=== PATIENT | male | born 1950 | race Two or more races ===

== ENCOUNTER 2019-06-21 11:30 | Emergency (ER) | payer MEDICARE ==
[~2019-06-21] VITALS: Ht 170.2 cm; Wt 85.7 kg
[2019-06-21 11:57] LABS: BASOPHILS % (AUTO) 0.9 % (0.0-2.0); EOSINOPHILS % (AUTO) 1.3 % (0.0-6.0); HEMATOCRIT 40 % (39-51); HEMOGLOBIN 13.8 g/dL (13.5-17.5); LYMPHOCYTES # (AUTO) 0.9 /CMM (0.8-4.8); LYMPHOCYTES % (AUTO) 21.8 % (20.0-44.0); MEAN CORPUSCULAR HGB CONC 35 g/dl (31.0-36.0); MEAN CORPUSCULAR VOLUME 99 fL (80-96); MONOCYTES # (AUTO) 0.4 /CMM (0.1-1.30); NEUTROPHILS # (AUTO) 2.6 /CMM (1.8-8.9); PLATELET COUNT (AUTO) 251 /CMM (150-450); RED BLOOD CELL COUNT(AUTO) 4.06 MIL/uL (4.5-6.0)
[2019-06-21] MEDS ORDERED: LEVETIRACETAM (500MG) 1,000 MG in IV NS 0.9% 100 ML IV SCH (12:00)
[2019-06-21 12:03] LABS: CALCIUM, SERUM 8.9 mg/dL (8.5-10.1); CREATININE 1.1 mg/dL (0.6-1.3)
--- NOTE | 2019-06-21 12:13 | NUR ---
patient JOSE DAVID COX 61 From Home Room mate called "he slumped over/shaky for about 20 min. BS-11. on room air, breathing evenly and unlabored. connected to the monitor and pulse ox. IV access initiated, blood drawned. Will continue to monitor accordingly.
[2019-06-21 13:51] VITALS: BP 159/88
--- NOTE | 2019-06-21 13:53 | NUR ---
Patient discharged to home in stable condition. Written and verbal after care instructions given. Patient verbalizes understanding of instruction.IV removed. Catheter intact and site benign. Pressure and 4x4 applied to site. No bleeding noted.
== END 2019-06-21 13:52 | disposition home or self-care (01) ==
LOC: ER 11:32
DX: G40.909 Epilepsy, unspecified, not intractable, without status epilepticus (principal); I10 Essential (primary) hypertension
CPT/HCPCS: 36415; 80048; 85025; 96365; 99283; J1953; J7030

== ENCOUNTER 2019-09-28 09:09 | Emergency (ER) | payer MEDICARE ==
[~2019-09-28] VITALS: Ht 170.2 cm; Wt 86.2 kg
[2019-09-28] MEDS ORDERED: IV NS 0.9% 1,000 ML BAG IV ONE ×2 (09:30→11:30)
--- NOTE | 2019-09-28 09:30 | NUR ---
PATIENT ARRIVED AT UNIT VIA RA. PATIENT A/O X 2. NO ACUTE DISTRESS. PER REPORT, PATIENT HAD GLD WHILE WALKING IN THE STREET. DENIES ANY TRAUMA. PATIENT CONNECTED TO MONITOR. WILL CONTINUE TO MONITOR ACCORDINGLY
[2019-09-28 09:58] LABS: BASOPHILS # (AUTO) 0.4 /CMM (0.0-0.2); BASOPHILS % (AUTO) 4.6 % (0.0-2.0); EOSINOPHILS % (AUTO) 0.6 % (0.0-6.0); HEMATOCRIT 48 % (39-51); HEMOGLOBIN 16.2 g/dL (13.5-17.5); LYMPHOCYTES % (AUTO) 12.8 % (20.0-44.0); MEAN CORPUSCULAR HGB CONC 34 g/dl (31.0-36.0); MEAN CORPUSCULAR VOLUME 101 fL (80-96); MONOCYTES # (AUTO) 0.4 /CMM (0.1-1.30); MONOCYTES % (AUTO) 5.6 % (2.0-12.0); NEUTROPHILS % (AUTO) 76.4 % (43.0-81.0); PLATELET COUNT (AUTO) 255 /CMM (150-450); RED BLOOD CELL COUNT(AUTO) 4.77 MIL/uL (4.5-6.0); WHITE BLOOD COUNT (AUTO) 7.8 K/uL (4.3-11.0)
--- NOTE | 2019-09-28 10:07 | NUR ---
URINE COLLECTED AND SENT TO LAB
[2019-09-28 10:31] LABS: APPEARANCE,URINE Clear (CLEAR); BILIRUBIN,URINE Negative (NEGATIVE); BLOOD, URINE Trace-lysed Ery/uL (NEGATIVE); COLOR,URINE Yellow (YELLOW); KETONES,URINE Negative (NEGATIVE); LEUKOCYTE ESTERASE ,URINE Negative (NEGATIVE); NITRITE, URINE Negative (NEGATIVE); PROTEIN,URINE 30 mg/dl (NEGATIVE); UGLUCOSE Negative (NEGATIVE); UROBILINOGEN,URINE 0.2 EU/dL (0.2)
[2019-09-28 10:31] LABS: CALCIUM, SERUM 8.9 mg/dL (8.5-10.1); CARBON DIOXIDE 19 mmol/L (21-32); CHLORIDE 105 mmol/L (98-107); CREATININE 0.7 mg/dL (0.6-1.3); GLUCOSE 78 mg/dL (74-106); POTASSIUM 3.5 mmol/L (3.5-5.1); SODIUM SERUM 138 mmol/L (136-145); UREA NITROGEN, BLOOD 8 mg/dL (7-18)
[2019-09-28 10:32] LABS: BACTERIA,URINE Rare /HPF (None Seen); RBC,URINE 0-2 /HPF (0-2); SQUAMOUS EPITHELIAL CELL,UR None Seen /HPF (None Seen); WBC,URINE 0-2 /HPF (0-3)
--- NOTE | 2019-09-28 10:59 | NUR ---
Note undone in EDM - 09/28/19 at 1100 by BLU PATIENT TRANSFERRED TO [facility] [place]IA ACLS PROTOCOL. NO ACUTE DISTRESS. NO FACIAL GRIMACE. BLACKMAN IN PLACE AND DRAINING. RECEIVING RN AT BEDSIDE.
[2019-09-28] MEDS ORDERED: LEVETIRACETAM (500MG) 1,000 MG in IV NS 0.9% 100 ML IV SCH (12:00)
[2019-09-28 13:21] LABS: BILIRUBIN,DIRECT 0.1 mg/dL (0.0-0.2); BILIRUBIN,TOTAL 0.2 mg/dL (0.2-1.0)
--- NOTE | 2019-09-28 15:58 | NUR ---
Social service consult requested by Dr. Patricio for possible homelessness. Pt. is a 69 year old -[place] Citizen male who was brought to [facility] via ambulance for ground level fall. SW met with the pt. bedside. Pt. is alert and oriented x 3. Pt. appears confused at times. Pt. is giving conflicting information as to where he resides. Pt. then states he rents a room at [address] [place] [address], [place] [id number] in [place]. Pt. is an alcoholic and drinks a litre of yellowtail wine whenever he is able to afford it. Pt. states he hasn't drank any alcohol since 5AM this morning. SW offered pt. referrals to alcohol treatment programs, however pt. declined. Pt. had his debit card and ID with him. Pt. was provided with a sandwich. Pt. was also provided with a TAP card for transportation to his location of choice. Pt. is ambulatory. Homeless Patient waiver form was signed by the pt. and placed in pt's chart. No other social service needs are requested at this time. XAVI Uriostegui is aware of pt's discharge plan.
[2019-09-28 16:20] VITALS: BP 144/89
--- NOTE | 2019-09-28 16:20 | NUR ---
Patient discharged to home in stable condition. Written and verbal after care instructions given. Tap card provided to patient. patient seen by social psychologist. Patient verbalizes understanding of instruction. Written prescription provided to patient.
== END 2019-09-28 16:22 | disposition home or self-care (01) ==
LOC: ER 09:11
DX: G40.909 Epilepsy, unspecified, not intractable, without status epilepticus (principal); I10 Essential (primary) hypertension; Z60.2 Problems related to living alone; W18.39XA Other fall on same level, initial encounter; Y93.01 Activity, walking, marching and hiking; Y92.89 Other specified places as the place of occurrence of the external cause; Y99.8 Other external cause status
CPT/HCPCS: 36415; 80048; 81001; 82247; 82248; 83605 ×2; 84484; 85025; 93005; 96365; 99284; J1953; J7030 ×3; 81000-TC

== ENCOUNTER 2019-11-07 09:15 | Inpatient (IN) | payer MEDICARE ==
[~2019-11-07] VITALS: Ht 170.2 cm; Wt 75.3 kg
[2019-11-07 07:00] VITALS: BP 140/66
--- NOTE | 2019-11-07 09:25 | NUR ---
[id number], from home, unwitnessed seizure, no injury or trauma, postictal bs 93. PT IS ALERT AND ORIENTED X2, WITH EPIDOES OF CONFUSION. BREATHING EVEN AND UNLABORED WITH NO DISTRESS NOTED. SKIN INTACT. SIDERAILS UP AND PADDED. AWAITING TO BE SEEN BY
--- NOTE | 2019-11-07 09:28 | NUR ---
SEEN AND EXAMINED BY .
--- NOTE | 2019-11-07 09:42 | NUR ---
IV LINE ESTABLISHED, BLOOD DRAWN AND SENT TO LAB.
[2019-11-07 09:44] LABS: BASOPHILS % (AUTO) 0.4 % (0.0-2.0); EOSINOPHILS % (AUTO) 0.3 % (0.0-6.0); HEMATOCRIT 47 % (39-51); HEMOGLOBIN 15.6 g/dL (13.5-17.5); LYMPHOCYTES # (AUTO) 0.7 /CMM (0.8-4.8); LYMPHOCYTES % (AUTO) 6.1 % (20.0-44.0); MEAN CORPUSCULAR HGB CONC 34 g/dl (31.0-36.0); MEAN CORPUSCULAR VOLUME 97 fL (80-96); MONOCYTES # (AUTO) 0.8 /CMM (0.1-1.30); MONOCYTES % (AUTO) 7.1 % (2.0-12.0); NEUTROPHILS # (AUTO) 10.2 /CMM (1.8-8.9); NEUTROPHILS % (AUTO) 86.1 % (43.0-81.0); PLATELET COUNT (AUTO) 358 /CMM (150-450); RED BLOOD CELL COUNT(AUTO) 4.79 MIL/uL (4.5-6.0); WHITE BLOOD COUNT (AUTO) 11.9 K/uL (4.3-11.0)
--- NOTE | 2019-11-07 09:45 | NUR ---
REWORK OPERATOR AT BEDSIDE
--- NOTE | 2019-11-07 09:48 | NUR ---
DIRECTOR OF BUSINESS CONTINUITY ERA IS AT BED SIDE.
[2019-11-07 09:51] LABS: CALCIUM, SERUM 9.3 mg/dL (8.5-10.1); CARBON DIOXIDE 28 mmol/L (21-32); CHLORIDE 101 mmol/L (98-107); GLUCOSE 113 mg/dL (74-106); POTASSIUM 3.7 mmol/L (3.5-5.1); SODIUM SERUM 137 mmol/L (136-145); UREA NITROGEN, BLOOD 10 mg/dL (7-18)
--- NOTE | 2019-11-07 09:53 | NUR ---
ADENIKE PERLA TOOK PT FOR CT SCAN
[2019-11-07 09:56] LABS: ALANINE AMINOTRANSFERASE 25 U/L (12-78); ALCOHOL, BLOOD < 3 mg/dL (0-0); ALKALINE PHOSPHATASE 82 U/L (46-116); ASPARTATE AMINOTRANSFERASE 34 U/L (15-37); BILIRUBIN,DIRECT 0.4 mg/dL (0.0-0.2); BILIRUBIN,TOTAL 1.6 mg/dL (0.2-1.0); TOTAL PROTEIN, SERUM 8.3 g/dL (6.4-8.2)
[2019-11-07] MEDS ORDERED: LORAZEPAM INJ 2 MG/ML VIAL ONE (10:09)
--- NOTE | 2019-11-07 10:10 | NUR ---
ENTERTAINMENT MUSICIAN COULD NOT COMPLETE CT SCAN, PT WAS BEING AGRESSIVE AND AGITATED. AWARE. NEW VERBAL ORDERS RECVD
[2019-11-07] MEDS ORDERED: LORAZEPAM INJ 2 MG/ML VIAL IV ONE (10:30)
--- NOTE | 2019-11-07 10:53 | NUR ---
SPOKED TO , SHE WANTS TO ORDER PT/OT FOR THIS PT, WILL RELY TO HOSPITALIST.
--- NOTE | 2019-11-07 10:53 | NUR ---
EMMANUEL CALLED ITS MAJOR.
--- NOTE | 2019-11-07 11:10 | NUR ---
Received a call from [facility] GINO Maciel. Patient needs to be transferred to SNF. Facesheet, ER Notes, Imaging, and Lab faxed to [facility] at [phone]. Carla CHRISTIAN AT [facility] will place the patient
--- NOTE | 2019-11-07 11:15 | NUR ---
Daniel MAJOR AT BEDSIDE FOR EVAL.
--- NOTE | 2019-11-07 11:17 | NUR ---
Social service consult requested by ER MD for suspected self-neglect requiring an adult protective services report. Pt is a 69 year old male who was BIB RA for seizure. SW attempted to conduct assessment with pt but pt unable to engage due to being medically sedated. Per ER MD, pt was found "living in squalor" by the paramedics that transported pt to ER. SIENA has submitted a report to Adult Protective Services of [facility] at 10:59 for possible self-neglect. APS Intake ID # [id number]. No other services needed at this time. SW available if needed.
--- NOTE | 2019-11-07 11:20 | NUR ---
SPOKED TO [facility] GENERAL INTERN, HOLD ADMISSION FOR NOW, WILL CALL BACK FOR SNF FACILITY INFO.
--- NOTE | 2019-11-07 11:29 | NUR ---
ROOM GIVEN [id number] RN JOSE
--- NOTE | 2019-11-07 11:42 | NUR ---
REPORT GIVEN TO LITO
--- NOTE | 2019-11-07 12:00 | NUR ---
MS LINEN SUPPLY LOAD BUILDER NOTES Received Patient agitated and combative. A/O x 1-2 with episodes of confusion. VS stable with no acute distress. Breathing even and unlabored on room air with no respiratory distress. No signs and symptoms of pain. Patient does not want to be touched at this time and hitting and kicking nurses when too close to the Patient. Otherwise skin intact. 18g PIV on RFA clean, intact, and flushing well with NS infusing at 75ml/hr. Safety precautions in place. Bed locked and set to lowest position with side rails x 3 up. All needs rendered at this time. Call light within reach. Sitter at bedside. Will continue to monitor.
--- NOTE | 2019-11-07 12:03 | NUR ---
pt transferred to [facility] safely
[2019-11-07] MEDS ORDERED: Z GUARD REMEDY 2 OZ OINT TP PRN (12:30)
[2019-11-07] MEDS ORDERED: MAG HYDROX/AL HYDROX/SIMETH 30 ML UDC PO PRN (12:30)
[2019-11-07] MEDS ORDERED: ACETAMINOPHEN 325 MG TABLET PO PRN (12:30)
[2019-11-07] MEDS ORDERED: MAGNESIUM HYDROXIDE 30 ML UDC PO PRN (12:30)
[2019-11-07] MEDS ORDERED: ONDANSETRON HCL/PF 4 MG/2 ML VIAL IVP PRN (12:30)
[2019-11-07 16:00] VITALS: BP 144/80
[2019-11-07] MEDS: LEVETIRACETAM (500MG) 1,000 MG in IV NS 0.9% 100 ML IV SCH (17:35)
[2019-11-07] MEDS: IV NS 0.9% 1,000 ML IV PRN (17:35)
--- NOTE | 2019-11-07 19:29 | NUR ---
MS RN CLOSING NOTES Patient asleep and resting in bed. A/O x 1-2 with episodes of confusion. VS stable with no acute distress. Breathing even and unlabored on room air with no respiratory distress. No signs and symptoms of pain. 18g PIV on RFA clean, intact, and flushing well with NS infusing at 75ml/hr. Safety precautions in place. Bed locked and set to lowest position with side rails x 3 up. All needs rendered at this time. Call light within reach. Sitter at bedside. Will endorse plan of care to oncoming shift.
--- NOTE | 2019-11-07 19:30 | NUR ---
MS RN OPENING NOTES RECEIVED PATIENT FROM MORNING SHIFT, ALERT AND ORIENTED 1-2. VERBALLY RESPONSIVE AND ABLE TO FOLLOW DIRECTIONS. BREATHING REGULAR AND UNLABORED ON ROOM AIR. RIGHT FOREARM IV LINE INTACT AND PATENT INFUSING WELL WITH NO BLEEDING OR S/S OF INFECTION/INFILTRATION NOTED. NO S/S OF PAIN/DISCOMFORT SEEN OF NOW. ON ONE TO ONE SITTER, NO EPISODE OF AGITATION OBSERVED OF THE TIME. BED LOW AND LOCKED ON SEMI FOWLERS POSITION. CALL LIGHT IN REACH. WILL CONTINUE TO MONITOR.
[2019-11-07 19:42] VITALS: BP 155/115
[2019-11-07 20:50] VITALS: BP 144/93
[2019-11-08] MEDS: LEVETIRACETAM (500MG) 1,000 MG in IV NS 0.9% 100 ML IV SCH ×2 (02:20→13:53)
--- NOTE | 2019-11-08 03:40 | NUR ---
MS RN NOTES PATIENT PULLED OUT IV LINE. NEW LINE G22 REINSERTED ON LEFT HAND WITH GOOD BLOOD BACKFLOW, FLUSHING WELL. HOOKED BACK TO IV FLUIDS, INFUSING WELL. WILL CONTINUE TO MONITOR.
[2019-11-08 06:13] LABS: BASOPHILS % (AUTO) 0.5 % (0.0-2.0); EOSINOPHILS % (AUTO) 0.5 % (0.0-6.0); HEMATOCRIT 42 % (39-51); HEMOGLOBIN 13.8 g/dL (13.5-17.5); LYMPHOCYTES # (AUTO) 1.6 /CMM (0.8-4.8); LYMPHOCYTES % (AUTO) 19.7 % (20.0-44.0); MEAN CORPUSCULAR HGB CONC 33 g/dl (31.0-36.0); MEAN CORPUSCULAR VOLUME 97 fL (80-96); MONOCYTES # (AUTO) 0.5 /CMM (0.1-1.30); MONOCYTES % (AUTO) 6.9 % (2.0-12.0); NEUTROPHILS # (AUTO) 5.7 /CMM (1.8-8.9); NEUTROPHILS % (AUTO) 72.4 % (43.0-81.0); PLATELET COUNT (AUTO) 313 /CMM (150-450); RED BLOOD CELL COUNT(AUTO) 4.29 MIL/uL (4.5-6.0); WHITE BLOOD COUNT (AUTO) 7.9 K/uL (4.3-11.0)
--- NOTE | 2019-11-08 06:16 | NUR ---
MS RN CLOSING NOTES PATIENT IN BED, ALERT AND ORIENTED X 1-2 WITH EPISODES OF CONFUSION. VERBALLY RESPONSIVE AND ABLE TO FOLLOW DIRECTIONS. NO S/S OF RESPIRATORY DISTRESS SEEN OF THE TIME. LEFT HAND G22 IV LINE INTACT AND PATENT INFUSING WELL WITH NO BLEEDING OR S/S OF INFECTION/INFILTRATION NOTED. NO REPORTS OF PAIN/DISCOMFORT THE WHOLE SHIFT. MAINTAINED ON ONE TO ONE SITTER WITH NO EPISODE OF AGITATION OBSERVED OF THE TIME. MAINTAINED ON NOTHING BY MOUTH. BED LOW AND LOCKED ON SEMI FOWLERS POSITION. CALL LIGHT IN REACH. WILL ENDORSE TO MORNING SHIFT FOR LISA
[2019-11-08] MEDS: IV NS 0.9% 1,000 ML IV PRN (06:24)
[2019-11-08 06:46] LABS: BILIRUBIN,DIRECT 0.4 mg/dL (0.0-0.2); BILIRUBIN,TOTAL 1.9 mg/dL (0.2-1.0); CALCIUM, SERUM 8.6 mg/dL (8.5-10.1); CREATININE 0.9 mg/dL (0.6-1.3); MAGNESIUM 1.8 mg/dL (1.8-2.4); POTASSIUM 3.4 mmol/L (3.5-5.1); TOTAL PROTEIN, SERUM 6.7 g/dL (6.4-8.2)
[2019-11-08 06:53] LABS: THYROID STIMULATING HORMONE 1.439 uIU/mL (0.358-3.74)
[2019-11-08 08:00] VITALS: BP 135/94
[2019-11-08] MEDS: POTASSIUM CL. PREMIX PERIPHER. 50 ML IV SCH ×2 (10:37→11:29)
--- NOTE | 2019-11-08 12:30 | NUR ---
Joselito MADDOX CLAIMS COLLECTOR IN WITH PLANS FOR DISCHARGE TODAY.RESTARTED ON FOOD.WAS NPO.STARTED CL LIQ. DIET.SITTER AT BEDSIDE.
--- NOTE | 2019-11-08 13:00 | NUR ---
TOLERATED CL LIQ. DIET.
[2019-11-08] MEDS ORDERED: ALLA266C2 TP (13:31)
[2019-11-08] MEDS ORDERED: ACET325T53 PO (13:31)
[2019-11-08] MEDS ORDERED: LEVE1000 PO (13:31)
--- NOTE | 2019-11-08 14:00 | NUR ---
REPORT CALLED TO FACILITY.SPOKE WITH DANIEL.
--- NOTE | 2019-11-08 15:42 | NUR ---
awaiting ambulance arrival.
[2019-11-08 16:00] VITALS: BP 139/100
--- NOTE | 2019-11-08 17:30 | NUR ---
AMBULANCE HERE.TENTER FEEDER GIVEN REPORT.HEP LOCKS OUT.ALL PAPERS SIGNED.TAKEN VIA AMBULANCE TO FACILITY.
[2019-11-08 17:59] LABS: APPEARANCE,URINE CLEAR (CLEAR); BILIRUBIN,URINE NEGATIVE (NEGATIVE); BLOOD, URINE NEGATIVE Ery/uL (NEGATIVE); COLOR,URINE YELLOW (YELLOW); KETONES,URINE TRACE (NEGATIVE); LEUKOCYTE ESTERASE ,URINE NEGATIVE (NEGATIVE); NITRITE, URINE NEGATIVE (NEGATIVE); PROTEIN,URINE NEGATIVE (NEGATIVE); UGLUCOSE NEGATIVE (NEGATIVE); UROBILINOGEN,URINE 0.2 EU/dL (0.2)
== END 2019-11-08 17:50 | DRG 101 ==
LOC: ER 09:26 → MED 11:36
PROVIDERS: ADMIT Nurse Practitioner Acute Care; ATTEND Nurse Practitioner Acute Care
DX: G40.409 Other generalized epilepsy and epileptic syndromes, not intractable, without status epilepticus (principal); I10 Essential (primary) hypertension; Z86.73 Personal history of transient ischemic attack (TIA), and cerebral infarction without residual deficits; E80.6 Other disorders of bilirubin metabolism; Z91.14 Patient's other noncompliance with medication regimen
CPT/HCPCS: 36415; 70450-TC; 71045-TC; 80048-TC; 80061-TC; 80076-TC; 81000-TC; 83735-TC; 84100-TC; 84443-TC; 85025-TC; 87040-TC; 87081-TC; 87086-TC; G0378; G0480; J1953; J2060; J3480; J7030

== ENCOUNTER 2019-12-25 17:15 | Emergency (ER) | payer MEDICARE ==
[~2019-12-25] VITALS: Ht 182.9 cm; Wt 83.9 kg
[~2019-12-25 17:15] MED LIST: ACET325T53 PO; ALLA266C2 TP; LEVE1000 PO
--- NOTE | 2019-12-25 17:20 | NUR ---
BIB RA C/O WITNESSED SEIZURE FULL TONIC CLONIC X 4MIN, PT TO BED 6, -SOB, PT ON MONITOR, VSS, PENDING MD DAVIS
[2019-12-25] MEDS ORDERED: LEVETIRACETAM SOL (5 ML) 100 MG/ML UDC PO SCH (17:30)
[2019-12-25] MEDS ORDERED: IV NS 0.9% 1,000 ML BAG IV ONE (17:30)
[2019-12-25] MEDS ORDERED: LORAZEPAM INJ 2 MG/ML VIAL IV ONE (17:30)
[2019-12-25 17:41] LABS: BASOPHILS % (AUTO) 0.7 % (0.0-2.0); EOSINOPHILS % (AUTO) 1.6 % (0.0-6.0); HEMATOCRIT 42 % (39-51); HEMOGLOBIN 14.1 g/dL (13.5-17.5); LYMPHOCYTES # (AUTO) 1.6 /CMM (0.8-4.8); LYMPHOCYTES % (AUTO) 35.6 % (20.0-44.0); MEAN CORPUSCULAR HGB CONC 34 g/dl (31.0-36.0); MEAN CORPUSCULAR VOLUME 97 fL (80-96); MONOCYTES # (AUTO) 0.5 /CMM (0.1-1.30); MONOCYTES % (AUTO) 10.4 % (2.0-12.0); NEUTROPHILS # (AUTO) 2.4 /CMM (1.8-8.9); NEUTROPHILS % (AUTO) 51.7 % (43.0-81.0); PLATELET COUNT (AUTO) 259 /CMM (150-450); WHITE BLOOD COUNT (AUTO) 4.6 K/uL (4.3-11.0)
[2019-12-25] MEDS ORDERED: LEVETIRACETAM (250 MG) 250 MG TABLET PO ONE (17:41)
[2019-12-25] MEDS ORDERED: LORAZEPAM INJ 2 MG/ML VIAL ONE (17:42)
[2019-12-25 17:48] LABS: POTASSIUM 3.7 mmol/L (3.5-5.1)
[2019-12-25 17:54] LABS: ALBUMIN 3.7 g/dL (3.4-5.0); BILIRUBIN,DIRECT 0.2 mg/dL (0.0-0.2); BILIRUBIN,TOTAL 1.3 mg/dL (0.2-1.0); TOTAL PROTEIN, SERUM 7.7 g/dL (6.4-8.2)
--- NOTE | 2019-12-25 20:53 | NUR ---
PER MD, PT WILL BE TRANSFERRED, PENDING FOLLOW UP FROM CM
--- NOTE | 2019-12-25 23:07 | NUR ---
TRANSFER INFO: PT ACCEPTED AT [facility] ROOM 214-B, AMBULANCE ETA 0045, RN [phone]
[2019-12-26] MEDS ORDERED: hydrALAZINE HCL IV 20 MG VIAL ONE (00:57)
[2019-12-26 01:17] VITALS: BP 158/121
--- NOTE | 2019-12-26 01:17 | NUR ---
pt left in stable condition, vss, nad noted, -sob, report given to staff,
--- NOTE | 2019-12-26 01:17 | NUR ---
report given to tiffanie donahue for javier
[2019-12-26] MEDS ORDERED: hydrALAZINE HCL IV 20 MG VIAL IV ONE (01:30)
== END 2019-12-26 01:34 | disposition short-term general hospital (02) ==
LOC: ER 17:18
DX: R56.9 Unspecified convulsions (principal); I10 Essential (primary) hypertension; R41.0 Disorientation, unspecified; Z60.2 Problems related to living alone; Z79.899 Other long term (current) drug therapy
CPT/HCPCS: 36415; 70450; 80048; 80076; 85025; 96361; 96374; 96375; 99285; J0360; J2060; J7030; 87081-TC

== ENCOUNTER 2020-03-14 14:50 | Inpatient (IN) | payer MEDICARE ==
[~2020-03-14] VITALS: Ht 182.9 cm; Wt 78.0 kg
--- NOTE | 2020-03-14 14:54 | NUR ---
BIB RA 60 FROM HOME, SEIZURE EPISODE,BLOOD SUGAR 107, TO ER BED 2, HOOKED TO MONITOR, CHANGED TO HOSP GOWN, WARM BLANKET PROVIDED, SEIZURE PRECAUTIONS APPLIED, PATIENT AAO X 3, BREATHING EVEN AND UNLABORED. DR ZHENG AT BEDSIDE
[2020-03-14] MEDS ORDERED: IV NS 0.9% 1,000 ML BAG IV ONE ×2 (15:00→16:00)
[2020-03-14] MEDS ORDERED: PANTOPRAZOLE 40 MG VIAL ONE (15:02)
--- NOTE | 2020-03-14 15:16 | NUR ---
ROOM MATE : MODESTO: PHONE: [phone] HOME: [phone]
--- NOTE | 2020-03-14 15:21 | NUR ---
Lyubov verdugo in [facility] - 03/14/20 at 1521 by ELIZA MICHELLE NEILSEN
[2020-03-14] MEDS ORDERED: LEVE250T2 PO (15:22)
[2020-03-14] MEDS ORDERED: LEVETIRACETAM (500MG) 1,000 MG in IV NS 0.9% 100 ML IV SCH (15:30)
[2020-03-14 15:32] LABS: BASOPHILS % (AUTO) 0.7 % (0.0-2.0); EOSINOPHILS % (AUTO) 0.3 % (0.0-6.0); HEMATOCRIT 41 % (39-51); HEMOGLOBIN 13.6 g/dL (13.5-17.5); LYMPHOCYTES # (AUTO) 0.9 /CMM (0.8-4.8); LYMPHOCYTES % (AUTO) 14.7 % (20.0-44.0); MEAN CORPUSCULAR HGB CONC 34 g/dl (31.0-36.0); MEAN CORPUSCULAR VOLUME 98 fL (80-96); MONOCYTES # (AUTO) 0.6 /CMM (0.1-1.30); MONOCYTES % (AUTO) 10.2 % (2.0-12.0); NEUTROPHILS # (AUTO) 4.3 /CMM (1.8-8.9); NEUTROPHILS % (AUTO) 74.1 % (43.0-81.0); PLATELET COUNT (AUTO) 281 /CMM (150-450); RED BLOOD CELL COUNT(AUTO) 4.14 MIL/uL (4.5-6.0); WHITE BLOOD COUNT (AUTO) 5.8 K/uL (4.3-11.0)
[2020-03-14 15:40] LABS: CALCIUM, SERUM 9.1 mg/dL (8.5-10.1); CREATININE 1.1 mg/dL (0.6-1.3)
[2020-03-14 15:46] LABS: BILIRUBIN,DIRECT 0.2 mg/dL (0.0-0.2); BILIRUBIN,TOTAL 1.8 mg/dL (0.2-1.0); TOTAL PROTEIN, SERUM 8.3 g/dL (6.4-8.2)
--- NOTE | 2020-03-14 15:51 | NUR ---
RESP PATHOGEN PROFILE, COVID AND RAPID INFLUENZA SWAB DONE. SENT TO LAB
[2020-03-14] MEDS ORDERED: LORAZEPAM INJ 2 MG/ML VIAL ONE (15:54)
[2020-03-14] MEDS ORDERED: LORAZEPAM INJ 2 MG/ML VIAL IV ONE (16:00)
--- NOTE | 2020-03-14 16:47 | NUR ---
WHEELED OUT VIA RNEY FOR CT SCAN
--- NOTE | 2020-03-14 17:09 | NUR ---
NURSING SUP GAVE M/S BED 317-1.
--- NOTE | 2020-03-14 17:36 | NUR ---
COLLECTED URINE SAMPLE VIA STRAIGHT CATHETER, SENT SAMPLE TO LAB
--- NOTE | 2020-03-14 17:45 | NUR ---
REPORT GIVEN TO WILD HURLEY OF MS UNIT
--- NOTE | 2020-03-14 17:54 | NUR ---
RECEIVED CALL FROM XAVI ROME, PER CHARGE NURSE, TRANSFER PATIENT AFTER SHIFT ALL R/O COVID PATIENTS WILL BE ADMITTED TO [facility]
[2020-03-14 18:12] LABS: APPEARANCE,URINE Clear (CLEAR); BILIRUBIN,URINE SMALL (NEGATIVE); BLOOD, URINE Negative Ery/uL (NEGATIVE); KETONES,URINE 15 (NEGATIVE); LEUKOCYTE ESTERASE ,URINE Negative (NEGATIVE); NITRITE, URINE Negative (NEGATIVE); PH,URINE 5.5 (5.0-8.0); PROTEIN,URINE 100 mg/dl (NEGATIVE); UGLUCOSE Negative (NEGATIVE); UROBILINOGEN,URINE 0.2 EU/dL (0.2)
[2020-03-14 18:13] LABS: COLOR,URINE DARK YELLOW (YELLOW)
[2020-03-14 18:41] LABS: C-REACTIVE PROTEIN 0.3 mg/dL (0.0-0.9)
--- NOTE | 2020-03-14 19:45 | NUR ---
CAFETERIA HELPERCHIEF OF PEDIATRIC UROLOGY NOTES RECEIVED PATIENT FROM MORNING SHIFT FOR ADMISSION, ALERT AND ORIENTED X 2 VERBALLY RESPONSIVE. BREATHING REGULAR AND UNLABORED ON ROOM AIR. RIGHT AC G20 IV LINE INTACT AND PATENT, FLUSHING WELL WITH NO BLEEDING OR S/S OF INFILTRATION NOTED. REFUSED BODY ASSESSMENT, RISK AD BENEFITS EXPLAINED. ATTACHED TO FIRST PRESS OPERATOR WITH NSR WITH PAC'S AT 68bpm. NO S/S OF PAIN/DISCOMFORT NOTED AT THIS TIME. ON SEIZURE PRECAUTIONS. BED LOW AND LOCKED ON SEMI FOWLERS POSITION. CALL LIGHT IN REACH. WILL CONTINUE TO MONITOR.
[2020-03-14 20:00] VITALS: BP 148/79
--- NOTE | 2020-03-15 | NUR ---
QUARRY WORKER NOTES REFUSED VITAL SIGNS TAKING, RISK AND BENEFITS EXPLAINED. MAINTAINED ON CARDIAC MONITORING WITH NSR with PAC'S AT 68bpm. WILL CONTINUE TO MONITOR.
[2020-03-15] MEDS ORDERED: LEVETIRACETAM (500MG) 500 MG in IV NS 0.9% 100 ML IV SCH (05:00)
--- NOTE | 2020-03-15 06:30 | NUR ---
OWNER/OPERATOR CLOSING NOTES PATIENT IN BED ALERT AND ORIENTED X 2-3. VERBALLY RESPONSIVE AND ABLE TO FOLLOW DIRECTIONS. AFEBRILE WITH NO S/S OF RESPIRATORY DISTRESS OBSERVED. RIGHT AC G20 IV LINE PATENT AND FLUSHING WELL. MAINTAINED CARDIAC MONITORING WITH NSR WITH PAC'S AT 68bpm. NO EPISODE OF SEIZURE NOTED WITHIN THE SHIFT. NO COMPLAINTS OF PAIN/DISCOMFORT REPORTED AT THIS TIME. MAINTAINED ON SEIZURE PRECAUTIONS. BED LOW AND LOCKED ON SEMI FOWLERS POSITION. CALL LIGHT IN REACH. WILL ENDORSE TO MORNING SHIFT FOR LISA.
--- NOTE | 2020-03-15 07:15 | NUR ---
MS RN NOTES PATIENT IN BED ALERT ORIENTED X 2-3. NO ACUTE DISTRESS NOTED BREATHING UNLABORED. IV ACCESS PATENT AND INTACT, NO REDNESS, NO SWELLING NOTED. SAFETY MEASURES IN PLACE. CALL LIGHT WITHIN REACH. WILL CONTINUE TO MONITOR ACCORDINGLY.
[2020-03-15 07:38] LABS: BASOPHILS % (AUTO) 0.6 % (0.0-2.0); EOSINOPHILS % (AUTO) 1.2 % (0.0-6.0); HEMATOCRIT 37 % (39-51); HEMOGLOBIN 12.6 g/dL (13.5-17.5); LYMPHOCYTES # (AUTO) 1.1 /CMM (0.8-4.8); MEAN CORPUSCULAR HGB CONC 34 g/dl (31.0-36.0); MEAN CORPUSCULAR VOLUME 97 fL (80-96); MONOCYTES # (AUTO) 0.6 /CMM (0.1-1.30); MONOCYTES % (AUTO) 10.2 % (2.0-12.0); NEUTROPHILS # (AUTO) 4.4 /CMM (1.8-8.9); PLATELET COUNT (AUTO) 254 /CMM (150-450); RED BLOOD CELL COUNT(AUTO) 3.85 MIL/uL (4.5-6.0); WHITE BLOOD COUNT (AUTO) 6.2 K/uL (4.3-11.0)
[2020-03-15 07:55] LABS: CALCIUM, SERUM 8.5 mg/dL (8.5-10.1); MAGNESIUM 1.9 mg/dL (1.8-2.4); PHOSPHORUS 3.1 mg/dL (2.5-4.9); POTASSIUM 3.9 mmol/L (3.5-5.1)
[2020-03-15 12:30] VITALS: BP 151/71
[2020-03-15 15:30] VITALS: BP 144/91
--- NOTE | 2020-03-15 18:49 | NUR ---
MS RN NOTES PATIENT IN BED ALERT ORIENTED X 2-3. NO ACUTE DISTRESS NOTED BREATHING UNLABORED. IV ACCESS PATENT AND INTACT, NO REDNESS, NO SWELLING NOTED. SAFETY MEASURES IN PLACE. CALL LIGHT WITHIN REACH.NEEDS ATTENDED AND ANTICIPATED. WILL ENDORSE TO NIGHT NURSE FOR CONTINUITY OF CARE.
--- NOTE | 2020-03-15 19:40 | NUR ---
NEW ACCOUNTS CLERK OPENING NOTES RECEIVED PATIENT FROM MORNING SHIFT ALERT AND ORIENTED X 2-3. VERBALLY RESPONSIVE AND ABLE TO FOLLOW DIRECTIONS. BREATHING REGULAR AND UNLABORED ON ROOM AIR. RIGHT AC G20 IV LINE INTACT AND PATENT, FLUSHING WELL WITH NO BLEEDING OR S/S OF INFILTRATION NOTED. STILL REFUSED BODY ASSESSMENT, RISK AD BENEFITS EXPLAINED. ATTACHED TO AGRICULTURAL EDUCATION PROFESSOR WITH NSR WITH PAC'S AT 65bpm. NO COMPLAINTS OF PAIN/DISCOMFORT REPORTED AT THIS TIME. ON SEIZURE PRECAUTIONS. BED LOW AND LOCKED ON SEMI FOWLERS POSITION. CALL LIGHT IN REACH. WILL CONTINUE TO MONITOR.
[2020-03-15 20:00] VITALS: BP 140/88
[2020-03-15] MEDS ORDERED: CEFEPIME 1 GM in IV D5W 50 ML IV SCH (21:00)
[2020-03-15] MEDS: LEVETIRACETAM (500MG) 500 MG in IV NS 0.9% 100 ML IV SCH (21:03)
[2020-03-15] MEDS: LORAZEPAM INJ 2 MG/ML VIAL IV PRN (21:58)
[2020-03-15] MEDS: HEPARIN SODIUM, PORCINE 5000 UNITS/1 ML VIAL SQ SCH (21:58)
--- NOTE | 2020-03-15 22:00 | NUR ---
ENVIRONMENTAL TECH NOTES SEEN AGITATED, TRIES TO REMOVE IV LINE AND COTTON TIER. RE-ORIENTED AND REASSURED. ATIVAN 1MG GIVEN VIA IV PUSH. NON-PHARMACOLOGICAL INTERVENTIONS PROVIDED. WILL CONTINUE TO MONITOR.
[2020-03-15] MEDS ORDERED: CEFEPIME 1 GM VIAL ONE (22:14)
[2020-03-15] MEDS: CEFEPIME 2 GM in IV D5W 100 ML IV SCH (22:47)
--- NOTE | 2020-03-16 06:30 | NUR ---
CHILD CENTER ASSISTANT CLOSING NOTES PATIENT IN BED ALERT AND ORIENTED X 2-3. VERBALLY RESPONSIVE AND ABLE TO FOLLOW DIRECTIONS. AFEBRILE WITH NO S/S OF RESPIRATORY DISTRESS OBSERVED. RIGHT AC G20 IV LINE PATENT AND FLUSHING WELL. MAINTAINED CARDIAC MONITORING WITH NSR WITH PAC'S AT 70bpm. NO EPISODE OF SEIZURE NOTED WITHIN THE SHIFT. NO COMPLAINTS OF PAIN/DISCOMFORT REPORTED AT THIS TIME. MAINTAINED ON SEIZURE PRECAUTIONS. BED LOW AND LOCKED ON SEMI FOWLERS POSITION. CALL LIGHT IN REACH. WILL ENDORSE TO MORNING SHIFT FOR LISA.
[2020-03-16 06:39] LABS: BASOPHILS % (AUTO) 0.7 % (0.0-2.0); HEMATOCRIT 40 % (39-51); HEMOGLOBIN 13.4 g/dL (13.5-17.5); LYMPHOCYTES # (AUTO) 1.5 /CMM (0.8-4.8); LYMPHOCYTES % (AUTO) 34.4 % (20.0-44.0); MEAN CORPUSCULAR HGB CONC 34 g/dl (31.0-36.0); MEAN CORPUSCULAR VOLUME 98 fL (80-96); MONOCYTES # (AUTO) 0.5 /CMM (0.1-1.30); MONOCYTES % (AUTO) 11.6 % (2.0-12.0); NEUTROPHILS # (AUTO) 2.3 /CMM (1.8-8.9); NEUTROPHILS % (AUTO) 51.3 % (43.0-81.0); PLATELET COUNT (AUTO) 276 /CMM (150-450); RED BLOOD CELL COUNT(AUTO) 4.08 MIL/uL (4.5-6.0); WHITE BLOOD COUNT (AUTO) 4.4 K/uL (4.3-11.0)
[2020-03-16 06:51] LABS: CALCIUM, SERUM 8.6 mg/dL (8.5-10.1); CREATININE 0.9 mg/dL (0.6-1.3); MAGNESIUM 1.8 mg/dL (1.8-2.4); PHOSPHORUS 3.6 mg/dL (2.5-4.9); POTASSIUM 3.6 mmol/L (3.5-5.1)
[2020-03-16 08:00] VITALS: BP 151/98
[2020-03-16] MEDS: LEVETIRACETAM (500MG) 500 MG in IV NS 0.9% 100 ML IV SCH ×2 (08:59→21:33)
[2020-03-16] MEDS: HEPARIN SODIUM, PORCINE 5000 UNITS/1 ML VIAL SQ SCH ×2 (09:06→21:00)
[2020-03-16] MEDS: CEFEPIME 2 GM in IV D5W 100 ML IV SCH ×2 (09:59→22:21)
--- NOTE | 2020-03-16 11:30 | NUR ---
PHOTOGRAPHIC EQUIPMENT MECHANIC NOTES PATIENT REMOVED TELE MONITOR, REFUSING TO PUT IN ON DESPITE OF EXPLANATION OF RISKS AND BENEFITS.
--- NOTE | 2020-03-16 15:53 | NUR ---
MEAT HANGER NOTES PATIENT REFUSING VITAL SIGNS TAKEN DESPITE OF EXPLANATION OF RISKS AND BENEFITS. OFFERED AGAIN TO PUT ON TELE MONITOR, PATIENT REFUSED DESPITE OF EXPLANATION OF RISKS AND BENEFITS. DR DAVEY MADE AWARE, NO NEW ORDERS MADE AT THIS TIME.
[2020-03-16 16:19] VITALS: BP 149/97
[2020-03-16] MEDS: LORAZEPAM INJ 2 MG/ML VIAL IV PRN (16:19)
--- NOTE | 2020-03-16 16:19 | NUR ---
MS RN NOTES PATIENT BECAME ANXIOUS,ATIVAN GIVEN ORDERED. PATIENT AGREED VITAL SIGNS TAKEN, VITAL SIGNS WITHIN NORMAL LIMIT.
--- NOTE | 2020-03-16 17:30 | NUR ---
BROKE BEATER MACHINE OPERATOR NOTES PATIENT SITTING IN BED EATING , NO ACUTE DISTRESS NOTED, BREATHING UNLABORED. ALERT ORIENTED X 2-3.
--- NOTE | 2020-03-16 18:52 | NUR ---
MS RN NOTES PATIENT IN BED ALERT ORIENTED X 2-3. NO ACUTE DISTRESS NOTED . BREATHING UNLABORED. IV ACCESS PATENT AND INTACT, NO REDNESS, NO SWELLING NOTED. PATIENT REFUSED CAN CARRIER PLACED, DR JEAN BAPTISTE AWARE. SAFETY MEASURES IN PLACE. CALL LIGHT WITHIN REACH.NEEDS ATTENDED AND ANTICIPATED. WILL ENDORSE TO NIGHT NURSE FOR CONTINUITY OF CARE.
--- NOTE | 2020-03-16 19:30 | NUR ---
MS XAVI ESPINOZA MANAGER DATABASE ADMINISTRATION ORDERED COVID SWAB. PER OLGA IF THEY SWAB THE PT IN E.R DISREGARD HER ORDER. WILL FF UP LAB. PT'S SEROLOGY DOESNT SHOW PT'S PENDING RESULT
--- NOTE | 2020-03-16 19:30 | NUR ---
MS RN PATIENT IN BED ALERT ORIENTED X 2-3. STABLE AND NOT IN DISTRESS. PATIENT REFUSED STOCK SHIPPER.PT KEPT REMOVING TELE MONITOR DESPITE EXPLAINING RISKS AND BENEFITS. SAFETY MEASURES IN PLACE. WILL CONTINUE TO MONITOR
--- NOTE | 2020-03-16 19:50 | NUR ---
PAGED LAB. FF UP COVID SEROLOGY RESULTS PER LAB THEY WILL FAX IT. SPOKE TO TYRA.
[2020-03-16 20:00] VITALS: BP 148/98
--- NOTE | 2020-03-16 21:55 | NUR ---
MS RN PT NOTED REMOVED I.V PERIPHERAL LINE. PT BEING COMBATIVE AND AGGRESSIVE PUNCH THE PLASTIC DOOR SHOUTING AT NURSES PT VERBALIZED "LET ME OUT HERE". CODE SHAW WAS INITIATED
--- NOTE | 2020-03-16 22:00 | NUR ---
PAGED HOSPITALIST SPOKE TO MERNA MADDOX REGARDING PT'S BEHAVIOR INFORM PT BEING AGGRESSIVE, NON COOPERATIVE REMOVED HIS IV PERIPHERAL ACCESS AND REFUSED HIS I.V ATB MEDICATION AND HEPARIN AT THIS TIME. PER MERNA ADD ROUTE TO IM/IV ATIVAN 1MG Q6HR CURRENT ORDER. AND 1:1 SITTER READ BACK AND VERIFIED ORDERS NOTED AND CARRIED OUT
--- NOTE | 2020-03-16 22:05 | NUR ---
PT REFUSING IV ATB MEDICATION MERREM AND HEPARIN SQ DUE HS DESPITE EXPLAINING RISKS AND BENEFITS OFFERED 3 TIMES PT REFUSED. PT VERBALIZED "I REFUSE IT".
[2020-03-16] MEDS: LORAZEPAM INJ 2 MG/ML VIAL IM/IV PRN (22:20)
[2020-03-17] VITALS: BP 155/98
--- NOTE | 2020-03-17 01:10 | NUR ---
ALARM WENT OFF PT WANTED TO GO RESTROOM ASSISTED PT WITH FORESTRY PROFESSOR. WHILE PT IS WALKING PT INTENTIONALLY SIT DOWN IN THE FLOOR .PT DID NOT HIT HIS HEAD, PT JUST SAT DOWN. NO FALL. NO PAIN IN LOWER EXTREMITY, ASSES PT PERRLA. ASKED PT WHAT DOES HE WANTED TO DO PT VERBALIZED " I JUST WANT TO SIT DOWN". ASSISTED PT BACK TO BED AND OFFERED URINAL INSTEAD. Addendum: 03/17/20 at 0641 by SHREE ALSTON RN PT STAND ON HIS OWN AND ASSISTED PT WALK BACK TO HIS BED
--- NOTE | 2020-03-17 01:15 | NUR ---
PHOTOGRAPH RETOUCHER AWARE PT INTENTIONALLY SIT DOWN IN FLOOR
--- NOTE | 2020-03-17 01:20 | NUR ---
PT ABLE TO MOVE ALL EXTREMITIES FREELY, VS TAKEN BP 147/81 P 89 R 20 TEMP 98.7 PT STILL INSIST TO GO TO RESTROOM EDUCATED PT NOT TO SIT IN THE FLOOR PT NEEDS REENFORCEMENT BEING NON COMPLIANT AND BEING AGGRESSIVE TO STAFF PT VERBALIZED"LEAVE ME ALONE. I WILL DO WHAT I WANTED TO DO". RE ORIENT PT FREQUENTLY.
--- NOTE | 2020-03-17 02:18 | NUR ---
PAGED HOSPITALIST RELAYED INCIDENT PT INTENTIONALLY SIT DOWN IN THE FLOOR. NO INJURIES. PER MERNA NO NEW ORDERS.
[2020-03-17 04:00] VITALS: BP 158/96
--- NOTE | 2020-03-17 06:25 | NUR ---
PT ASLEEP AND EASILY AWAKEN AT THIS TIME. PT NON COMPLIANT WITH MEDICATION. A/O X 2. STABLE 1:1 SITTER ORDERED. NEEDS ATTENDED AND ANTICIPATED, KEPT CLEAN, DRY AND COMFORTABLE. PT RE ORIENT AND REASSURED, CALM AT THIS TIME. MONITORED ACCORDINGLY NO S/S OF DISTRESS. PT STILL REFUSING TELEMETRY MONITORING REMOVING LEADS DESPITE EXPLAINING RISKS AND BENEFITS MADE AWARE. NO SEIZURE ACTIVITY. SAFETY MEASURES AT ALL TIMES. WILL ENDORSE TO NEXT SHIFT.
--- NOTE | 2020-03-17 07:15 | NUR ---
MS RN NOTES PATIENT IN BED ALERT ORIENTED X 2-3. NO ACUTE DISTRESS NOTED BREATHING UNLABORED. NO IV ACCESS , PATIENT REFUSED NEW IV LINE STARTED AT THIS TIME, WILL OFFER AGAIN. SAFETY MEASURES IN PLACE. CALL LIGHT WITHIN REACH. WILL CONTINUE TO MONITOR ACCORDINGLY.
[2020-03-17 09:06] LABS: BASOPHILS % (AUTO) 0.5 % (0.0-2.0); EOSINOPHILS % (AUTO) 1.4 % (0.0-6.0); HEMATOCRIT 40 % (39-51); HEMOGLOBIN 14.1 g/dL (13.5-17.5); LYMPHOCYTES # (AUTO) 1.3 /CMM (0.8-4.8); LYMPHOCYTES % (AUTO) 32.7 % (20.0-44.0); MEAN CORPUSCULAR HGB CONC 35 g/dl (31.0-36.0); MEAN CORPUSCULAR VOLUME 96 fL (80-96); MONOCYTES # (AUTO) 0.4 /CMM (0.1-1.30); MONOCYTES % (AUTO) 11.1 % (2.0-12.0); NEUTROPHILS # (AUTO) 2.2 /CMM (1.8-8.9); NEUTROPHILS % (AUTO) 54.3 % (43.0-81.0); PLATELET COUNT (AUTO) 289 /CMM (150-450); RED BLOOD CELL COUNT(AUTO) 4.17 MIL/uL (4.5-6.0)
[2020-03-17 09:25] LABS: CALCIUM, SERUM 9.2 mg/dL (8.5-10.1); CREATININE 0.7 mg/dL (0.6-1.3); MAGNESIUM 1.8 mg/dL (1.8-2.4); PHOSPHORUS 3.5 mg/dL (2.5-4.9); POTASSIUM 3.4 mmol/L (3.5-5.1)
[2020-03-17 09:30] VITALS: BP 151/98
--- NOTE | 2020-03-17 09:30 | NUR ---
MS RN NOTES PATIENT IN BED ALERT ORIENTED X 2-3, APPEARS CALM. OFFERED LAND MANAGEMENT FORESTER PLACE, VITAL SIGNS TAKEN , IV MEDICATIONS GIVEN AND NEW IV LINE STARTED, PATIENT AGREED AND SAID OK TO DO IT. PLACED ON LAND MANAGEMENT FORESTER , SINUS RHYTHM. VITAL SIGNS TAKEN WITHIN NORMAL LIMITS, IV LINE STARTED ON RAC GAUGE 20 WITH GOOD BLOOD RETURN X 1 ATTEMPT, PATIENT TOLERATED WELL, SECURED WITH TRANSPARENT DRESSING DATED AND SIGNED.
[2020-03-17] MEDS: LEVETIRACETAM (500MG) 500 MG in IV NS 0.9% 100 ML IV SCH ×2 (09:46→20:35)
[2020-03-17] MEDS: HEPARIN SODIUM, PORCINE 5000 UNITS/1 ML VIAL SQ SCH ×2 (10:05→21:31)
[2020-03-17] MEDS: CEFEPIME 2 GM in IV D5W 100 ML IV SCH ×2 (10:18→21:27)
--- NOTE | 2020-03-17 13:20 | NUR ---
ORAL SURGERY TECHNICIAN NOTES PATIENT REMOVED HIS SHUTTLE FINAL INSPECTOR REFUSING TO PUT IT BACK ON SAID HE DOESN'T WANNA PUT IT ON RIGHT NOW DESPITE OF EXPLANATION OF RISKS AND BENEFITS. PATIENT IN STABLE CONDITION.
--- NOTE | 2020-03-17 14:30 | NUR ---
MS RN NOTES PATIENT AGREED TELE MONITOR PLACED AGAIN, SINUS RHYTHM ON ON MONITOR.
--- NOTE | 2020-03-17 19:00 | NUR ---
MS RN NOTES PATIENT IN BED ALERT ORIENTED X 2-3. NO ACUTE DISTRESS NOTED . BREATHING UNLABORED. IV ACCESS PATENT AND INTACT, NO REDNESS, NO SWELLING NOTED. SAFETY MEASURES IN PLACE. CALL LIGHT WITHIN REACH. NEEDS ATTENDED AND ANTICIPATED. WILL ENDORSE TO NIGHT NURSE FOR CONTINUITY OF CARE.
--- NOTE | 2020-03-17 19:20 | NUR ---
DIRECTOR FEDERAL RECEIVE PT IN BED AGGRESSIVE AT THIS TIME. WANTED TO GET OUT OF THE HOSPITAL. SHOUTING AT NURSES. RE ORIENT PATIENT, ON CARDIAC MONITORING, WILL CONT TO MONITOR
--- NOTE | 2020-03-17 19:21 | NUR ---
PT REMOVED TELEMETRY MONITORING DESPITE EXPLAINING RISKS AND BENEFITS PT VERBALIZED"I DONT NEED THIS" OFFERED 3 TIEMS PT KEPT ON REMOVING
[2020-03-17] MEDS: LORAZEPAM INJ 2 MG/ML VIAL IM/IV PRN (19:33)
[2020-03-17 20:00] VITALS: BP 158/91
--- NOTE | 2020-03-17 20:30 | NUR ---
PT CALM AT THIS TIME. NO S/S OF DISTRESS. WILL CONT TO MONITOR PT'S BEHAVIOR
[2020-03-18] VITALS: BP 148/83
[2020-03-18] MEDS: LORAZEPAM INJ 2 MG/ML VIAL IM/IV PRN ×2 (01:43→22:07)
--- NOTE | 2020-03-18 02:55 | NUR ---
MS RN PT ASLEEP AND EASILY AWAKEN CALM AT THIS TIME NO S/S OF AGITATION WILL CONT TO MONITOR
[2020-03-18 04:00] VITALS: BP 155/89
--- NOTE | 2020-03-18 05:59 | NUR ---
MS RN ASLEEP AND EASILY AWAKEN, CALM AT THIS TIME. MONITORED ACCORDINGLY, PT STABLE, AFEBRILE. NO SHORTNESS OF BREATH, GOOD SKIN CARE AT ALL TIMES. ALL NEEDS ATTENDED AND ANTICIPATED, KEPT CLEAN, DRY AND COMFORTABLE. NO SEIZURE ACTIVITY, PT STILL REFUSING TELEMETRY MONITORING REMOVES LEADS DR CORTEZ MADE AWARE. SAFETY MEASURES AT ALL TIMES. WILL ENDORSE POC.
--- NOTE | 2020-03-18 07:30 | NUR ---
MAINSPRING FORMER NOTES PATIENT AWAKE EATING BREAKFAST, NO RESPIRATORY DISTRESS, NO C/O PAIN AT THIS TIME. PATIENT REFUSING LEADS TO BE ON WILL INFORM MD. SAFETY PRECAUTIONS IN PLACE. SKIN WARM TO TOUCH, IV ACCESS SITE INTACT AND PATENT. PATIENT'S NEEDS ATTENDED, BED ON LOWEST LOCKED POSITION, CALL LIGHT WITHIN REACH. WILL CONTINUE TO MONITOR.
[2020-03-18] MEDS: CEFEPIME 2 GM in IV D5W 100 ML IV SCH ×2 (09:18→22:05)
[2020-03-18] MEDS: HEPARIN SODIUM, PORCINE 5000 UNITS/1 ML VIAL SQ SCH ×2 (09:18→21:24)
[2020-03-18] MEDS: LEVETIRACETAM (500MG) 500 MG in IV NS 0.9% 100 ML IV SCH ×2 (10:35→21:23)
[2020-03-18 10:58] LABS: BASOPHILS % (AUTO) 0.7 % (0.0-2.0); EOSINOPHILS % (AUTO) 2.1 % (0.0-6.0); HEMATOCRIT 41 % (39-51); HEMOGLOBIN 13.8 g/dL (13.5-17.5); LYMPHOCYTES # (AUTO) 1.2 /CMM (0.8-4.8); MEAN CORPUSCULAR HGB CONC 34 g/dl (31.0-36.0); MEAN CORPUSCULAR VOLUME 97 fL (80-96); MONOCYTES # (AUTO) 0.6 /CMM (0.1-1.30); MONOCYTES % (AUTO) 15.3 % (2.0-12.0); NEUTROPHILS # (AUTO) 1.9 /CMM (1.8-8.9); NEUTROPHILS % (AUTO) 49.9 % (43.0-81.0); PLATELET COUNT (AUTO) 308 /CMM (150-450); RED BLOOD CELL COUNT(AUTO) 4.16 MIL/uL (4.5-6.0); WHITE BLOOD COUNT (AUTO) 3.8 K/uL (4.3-11.0)
[2020-03-18 11:09] LABS: CALCIUM, SERUM 9.2 mg/dL (8.5-10.1); PHOSPHORUS 4.5 mg/dL (2.5-4.9); POTASSIUM 3.6 mmol/L (3.5-5.1)
--- NOTE | 2020-03-18 19:03 | NUR ---
M/S RN NOTES PATIENT AWAKE IN BED, SITTER AT BEDSIDE, SAFETY PRECAUTIONS IN PLACE, NO RESPIRATORY DISTRESS, NO C/O PAIN AT THIS TIME. SKIN WARM TO TOUCH, IV ACCESS SITE INTACT AND PATENT. PATIENT'S NEEDS ATTENDED, BED ON LOWEST LOCKED POSITION, CALL LIGHT WITHIN REACH. WILL ENDORSE TO ONCOMING NURSE.
--- NOTE | 2020-03-18 19:25 | NUR ---
RN OPENING NOTES RECEIVED PATIENT AWAKE IN BED WITH SITTER AT BEDSIDE. A/OX2. NO SIGNS OF DISTRESS OR DISCOMFORT. BREATHING EVEN AND UNLABORED. IV ACCESS IN RAC, PATENT AND INTACT, NO SIGNS OF REDNESS OR INFILTRATION. BED IN LOW LOCKED POSITION WITH SIDE RAILS X2. CALL LIGHT WITHIN REACH. WILL CONTINUE TO MONITOR.
[2020-03-18 20:00] VITALS: BP 154/106
--- NOTE | 2020-03-18 22:07 | NUR ---
RN NOTES ADMINISTERED ATIVAN 1MG ORDERED FOR AGITATION. PATIENT TRIES TO LEAVE THE ROOM, KEEPS STATING "ITS GOING TO UGLY" AND BECOMES AGGRESSIVE WHEN TRYING TO EXPLAIN TO HIM HE CANNOT LEAVE AT THIS TIME. VSS. WILL CONTINUE TO MONITOR.
[2020-03-19] VITALS: BP 158/90
--- NOTE | 2020-03-19 06:45 | NUR ---
RN CLOSING NOTES PATIENT RESTING IN BED WITH SITTER AT BEDSIDE, EASILY AROUSABLE. A/OX2. NO SIGNS OF DISTRESS OR DISCOMFORT. BREATHING EVEN AND UNLABORED. IV ACCESS IN RAC, PATENT AND INTACT, NO SIGNS OF REDNESS OR INFILTRATION. PATIENT STILL REFUSING TO PUT ON TELE MONITOR BOX. ALSO REFUSING SKIN ASSESSMENT AND TO BED BATH. RISK AND BENEFITS EXPLAINED. ALL NEEDS MET. NO SIGNIFICANT CHANGES THROUGH THE NIGHT. BED IN LOW LOCKED POSITION WITH SIDE RAILS X2. CALL LIGHT WITHIN REACH. WILL ENDORSE TO AM SHIFT FOR LISA.
[2020-03-19 08:00] VITALS: BP 155/95
--- NOTE | 2020-03-19 08:00 | NUR ---
RN NOTES RECEIVED PATIENT IN THE BED GET IRRITABLE EASILY, CONFUSED, BUR REDIRECTABLE. ASSIST PATIENT TAKING SHOWER BY SNS, UNSTABLE GAIT, V/S TAKEN BP 155/95, P-68, ADMINISTERED SCHEDULED MEDICATION, PATIENT TOLERATED BREAKFAST WELL. IV ACCESS ON RIGHT AC INTACT, NO S/S OF SEIZURE DISORDER. CALL LIGHT WITHIN TO REACH, CONTINUED MONITORING FOR SAFETY.
[2020-03-19] MEDS: CEFEPIME 2 GM in IV D5W 100 ML IV SCH (08:25)
[2020-03-19] MEDS: LEVETIRACETAM (250 MG) 250 MG TABLET PO SCH ×2 (08:25→20:50)
[2020-03-19] MEDS: LORAZEPAM INJ 2 MG/ML VIAL IM/IV PRN ×2 (08:26→20:50)
--- NOTE | 2020-03-19 08:26 | NUR ---
RN NOTES ADMINISTERED ATIVAN 1 MG/ML IV PUSH FOR ANXIETY, AGGITATION, BP-155/95, P-68. CONTINUED MONITORING.
[2020-03-19] MEDS: HEPARIN SODIUM, PORCINE 5000 UNITS/1 ML VIAL SQ SCH ×2 (08:28→20:51)
--- NOTE | 2020-03-19 08:51 | NUR ---
RN NOTES SEEN PATIENT BY HOSPITALIST Dr JEAN BAPTISTE, PLAN IS DISCHARGE TO SNF. 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 PATIENT USING URINAL, CALL LIGHT WITHIN TO REACH, CONTINUED MONITORING.
--- NOTE | 2020-03-19 13:06 | NUR ---
RN NOTES MEDICATION WERE ADMINISTERED FOR ANXIETY EFFECTIVE PATIENT RESTING IN THE BED, 1:1 SITTER NEXT TO THE BED FOR SAFETY.
[2020-03-19 16:00] VITALS: BP 131/92
--- NOTE | 2020-03-19 18:00 | NUR ---
RN NOTES PATIENT STABLE, TOLERATED DINNER WELL, REFUSED PAIN , 1;1 SITTER NEXT TO THE BED FOR SAFETY, CALL LIGHT WITHIN TO REACH. ENDORSED ONCOMING NURSE FOLLOW PLAN OF CARE.
--- NOTE | 2020-03-19 19:20 | NUR ---
RN OPENING NOTES Received patient awake, A/O x2, with confusion noted. On RA, no SOB/respiratory distress noted. Patient denies any discomfort at this time. Patient refused to be on tele monitor. Offered snacks per patient demand. Kept bed low and lock. On fall and aspiration precautions. Will continue to monitor accordingly.
[2020-03-19 20:59] VITALS: BP 145/102
--- NOTE | 2020-03-20 06:49 | NUR ---
RN CLOSING NOTES Patient asleep, easily awaken. On RA, no SOB/respiratory distress noted. Patient noted confused, asking the nurse to buy beer noted twice within the shift. Patient able to realize when reoriented that he is in the hospital. All nursing needs attended. Due meds given as ordered. Kept on bed clean, dry and comfortable. Call light within easy reach. On fall and aspiration precautions. Endorsed.
[2020-03-20 08:00] VITALS: BP 139/94
--- NOTE | 2020-03-20 08:00 | NUR ---
rn notes received patient in the room awake, confused, get irritable easily , combative. patient has no acute respiratory distress .patient has left eye blindness, fall risk 1:1 sitter next to the bed for safety, patient tolerated breakfast well. plan is discharge today to snf. patient has no sign and symptoms of seizure. call light within to reach, safety precaution maintained all the time.
[2020-03-20] MEDS: LEVETIRACETAM (250 MG) 250 MG TABLET PO SCH ×2 (08:05→18:38)
[2020-03-20] MEDS: HEPARIN SODIUM, PORCINE 5000 UNITS/1 ML VIAL SQ SCH (08:06)
[2020-03-20] MEDS: LORAZEPAM INJ 2 MG/ML VIAL IM/IV PRN (08:07)
--- NOTE | 2020-03-20 08:07 | NUR ---
rn notes administered Ativan 1 mg/ml iv push for right ac area intact, v/s taken bp 139/74, p-82, continued monitoring.
[2020-03-20 16:00] VITALS: BP_SYST 141; BP_DIAS 100; BP_DIAS 102
--- NOTE | 2020-03-20 16:00 | NUR ---
RN NOTES BP 149/101, P-85 NOTIFIED LESLY MORALES , AND GET TO ORDER CLONIDINE 0.1 MG PO X1 , ORDER TAKEN AND CARRIED OUT.
--- NOTE | 2020-03-20 17:26 | NUR ---
RN NOTES ADMINISTERED CLONIDINE 0.1 MG PO X1 FOR BP-149/101, P-85. CONTINUED MONITORING.
[2020-03-20] MEDS ORDERED: CLONIDINE HCL 0.1 MG TABLET PO ONE (17:30)
--- NOTE | 2020-03-20 18:38 | NUR ---
LINE APPLIANCE ASSEMBLER NOTES PATIENT DISCHARGE AT THIS TIME GOING HOME WITH HOME HEALTH. PATIENT STABLE, MEDICATION WERE ADMINISTERED FOR BP 125/95, P-85, ALSO ADMINISTERED KEPPRA 500 MG SCHEDULED. PATIENT REFUSED PAIN, BELONGING WITH THE PATIENT. MED RECONCILIATION AND DISCHARGE ORDER REVIEWED AND EXPLAINED TO PATIENT, VERBALIZED UNDERSTANDING. PATIENT REFUSED SIGH PAPERWORK, COSIGNED WITH CO-WORKER XAVI RICO. PATIENT WILL FOLLOW PRIMARY MD. PAPERWORK HANDED TO THE PATIENT. ESCORTED PATIENT TO THE LOBBY FOR SAFETY. PATIENT BINDER CUTTER BY CAB.
[2020-03-20 18:49] VITALS: BP 125/95
== END 2020-03-20 18:50 | disposition home health service (06) | DRG 101 ==
LOC: ER 14:52 → MED 17:29 → MEDSG2 20:59 → TELE2 21:32
PROVIDERS: ADMIT Student in an Organized Health Care Education/Training Program; ATTEND Nurse Practitioner Acute Care
DX: G40.409 Other generalized epilepsy and epileptic syndromes, not intractable, without status epilepticus (principal); Z91.14 Patient's other noncompliance with medication regimen; Z86.73 Personal history of transient ischemic attack (TIA), and cerebral infarction without residual deficits; I10 Essential (primary) hypertension; Z79.899 Other long term (current) drug therapy; F12.90 Cannabis use, unspecified, uncomplicated; S09.90XA Unspecified injury of head, initial encounter; X58.XXXA Exposure to other specified factors, initial encounter; D64.9 Anemia, unspecified
CPT/HCPCS: 36415; 70450-TC; 70486-TC; 71045-TC; 72125-TC; 80048-TC; 80076-TC; 80305; 81000-TC; 83605-TC; 83615-TC; 83735-TC; 84100-TC; 85025-TC; 85730-TC; 86140-TC; 87040-TC; 87081-TC; 95819-TC; 97116-TC; 97530-TC; C9113; G0378; G0480; J0692; J1644; J1953; J2060; J7030; J7050; J7060

== ENCOUNTER 2020-03-31 18:47 | Emergency (ER) | payer MEDICARE ==
[~2020-03-31] VITALS: Ht 182.9 cm; Wt 77.1 kg
[~2020-03-31 18:47] MED LIST changes: -ACET325T53 PO; -ALLA266C2 TP; -LEVE1000 PO; +LEVE250T2 PO
--- NOTE | 2020-03-31 19:06 | NUR ---
PT REC'D TO ER VIA EMS SEIZURE AT HOME ROOMATE CALLED 911 . IV STARTED RT AHND 18 G LABS SENT TO LAB AWAITING EVALUATION BY ER PROVIDER.
[2020-03-31] MEDS ORDERED: LEVETIRACETAM (500MG) 500 MG/5 ML VIAL IV ONE (19:12)
[2020-03-31 19:13] LABS: BASOPHILS # (AUTO) 0.1 /CMM (0.0-0.2); BASOPHILS % (AUTO) 1.1 % (0.0-2.0); HEMATOCRIT 39 % (39-51); HEMOGLOBIN 13.1 g/dL (13.5-17.5); LYMPHOCYTES # (AUTO) 1.7 /CMM (0.8-4.8); LYMPHOCYTES % (AUTO) 31.3 % (20.0-44.0); MEAN CORPUSCULAR HGB CONC 34 g/dl (31.0-36.0); MEAN CORPUSCULAR VOLUME 99 fL (80-96); MONOCYTES # (AUTO) 0.4 /CMM (0.1-1.30); MONOCYTES % (AUTO) 7.3 % (2.0-12.0); NEUTROPHILS # (AUTO) 3.2 /CMM (1.8-8.9); NEUTROPHILS % (AUTO) 59.3 % (43.0-81.0); PLATELET COUNT (AUTO) 306 /CMM (150-450); RED BLOOD CELL COUNT(AUTO) 3.93 MIL/uL (4.5-6.0); WHITE BLOOD COUNT (AUTO) 5.4 K/uL (4.3-11.0)
[2020-03-31] MEDS ORDERED: LEVETIRACETAM (500MG) 1,000 MG in IV NS 0.9% 100 ML IV SCH (19:30)
[2020-03-31 19:36] LABS: BILIRUBIN,DIRECT 0.2 mg/dL (0.0-0.2); CALCIUM, SERUM 9.1 mg/dL (8.5-10.1); CREATININE 1.2 mg/dL (0.6-1.3); POTASSIUM 3.8 mmol/L (3.5-5.1)
--- NOTE | 2020-03-31 20:39 | NUR ---
PATIENT IS AAOX4. NO SOB. BREATHING EVENLY AND UNLABORED ON ROOM AIR. PATIENT IS AMBULATORY WITH A STEADY GAIT DURING ROAD TEST.
--- NOTE | 2020-03-31 20:39 | NUR ---
PROVIDED AND EXPLAINED TO PATIENT REGARDING PRESCRIPTIONS.
[2020-03-31 20:49] VITALS: BP 129/82
--- NOTE | 2020-03-31 20:49 | NUR ---
Patient discharged to home in stable condition. Written and verbal after care instructions given. Patient verbalizes understanding of instruction.
--- NOTE | 2020-03-31 20:49 | NUR ---
IV removed. Catheter intact and site benign. Pressure and 4x4 applied to site. No bleeding noted.
== END 2020-03-31 20:50 | disposition home or self-care (01) ==
LOC: ER 18:49
DX: G40.909 Epilepsy, unspecified, not intractable, without status epilepticus (principal); I10 Essential (primary) hypertension; Z60.2 Problems related to living alone; Z79.899 Other long term (current) drug therapy
CPT/HCPCS: 80048; 80076; 85025; 96365; 99284; J1953 ×2; J7030 ×2

== ENCOUNTER 2020-04-19 07:14 | Emergency (ER) | payer MEDICARE ==
[~2020-04-19] VITALS: Ht 177.8 cm; Wt 74.8 kg
--- NOTE | 2020-04-19 07:15 | NUR ---
PT BRIDGETTE FRM HOME. WITNESSED BY ROOMATE HAVING SEIZURE. UPON EMS ARRIVAL, BG WAS IN THE 40'S. PT WAS GIVEN D10 IV TUTORING ASSISTANT. BG 220 TUTORING ASSISTANT. PT IS AWAKE, ABLE TO FOLLOW COMMANDS. STATES TAKES KEPPRA FOR SEIZURE. VITALS STABLE. AWAITING MD DAVIS.
--- NOTE | 2020-04-19 07:18 | NUR ---
DR BAKER AT BEDSIDE FOR EVAL.
[2020-04-19] MEDS ORDERED: LEVETIRACETAM (500MG) 500 MG in IV NS 0.9% 100 ML IV ONE (07:30)
[2020-04-19 07:43] LABS: BASOPHILS % (AUTO) 1.1 % (0.0-2.0); EOSINOPHILS % (AUTO) 1.1 % (0.0-6.0); HEMATOCRIT 39 % (39-51); HEMOGLOBIN 13.1 g/dL (13.5-17.5); LYMPHOCYTES # (AUTO) 1.2 /CMM (0.8-4.8); LYMPHOCYTES % (AUTO) 30.6 % (20.0-44.0); MEAN CORPUSCULAR HGB CONC 34 g/dl (31.0-36.0); MEAN CORPUSCULAR VOLUME 99 fL (80-96); MONOCYTES # (AUTO) 0.3 /CMM (0.1-1.30); MONOCYTES % (AUTO) 9.1 % (2.0-12.0); NEUTROPHILS # (AUTO) 2.2 /CMM (1.8-8.9); NEUTROPHILS % (AUTO) 58.1 % (43.0-81.0); PLATELET COUNT (AUTO) 225 /CMM (150-450); RED BLOOD CELL COUNT(AUTO) 3.93 MIL/uL (4.5-6.0); WHITE BLOOD COUNT (AUTO) 3.8 K/uL (4.3-11.0)
[2020-04-19 07:49] LABS: CALCIUM, SERUM 8.8 mg/dL (8.5-10.1); CARBON DIOXIDE 21 mmol/L (21-32); CHLORIDE 105 mmol/L (98-107); CREATININE 1.2 mg/dL (0.6-1.3); GLUCOSE 172 mg/dL (74-106); POTASSIUM 3.8 mmol/L (3.5-5.1); SODIUM SERUM 142 mmol/L (136-145); UREA NITROGEN, BLOOD 13 mg/dL (7-18)
[2020-04-19 07:55] LABS: ALANINE AMINOTRANSFERASE 22 U/L (12-78); ALBUMIN 3.6 g/dL (3.4-5.0); ALKALINE PHOSPHATASE 66 U/L (46-116); ASPARTATE AMINOTRANSFERASE 25 U/L (15-37); BILIRUBIN,DIRECT 0.2 mg/dL (0.0-0.2); BILIRUBIN,TOTAL 0.6 mg/dL (0.2-1.0); TOTAL PROTEIN, SERUM 7.5 g/dL (6.4-8.2)
--- NOTE | 2020-04-19 08:00 | NUR ---
PT TO RADIOLOGY FOR HEAD CT SCAN VIA [facility].
--- NOTE | 2020-04-19 09:32 | NUR ---
PT AWAKE, PROVIDED W/ MEAL TRAY.
--- NOTE | 2020-04-19 10:24 | NUR ---
IV removed. Catheter intact and site benign. Pressure and 4x4 applied to site. No bleeding noted.
--- NOTE | 2020-04-19 10:26 | NUR ---
PT AMBULATORY W/ STEADY GAIT. WAS PROVIDED W/ MEAL TRAY AND BUS CARD. DISCHARGE HOME IN STABLE CONDITION.
[2020-04-19 10:27] VITALS: BP 155/99
[2020-09-09] MEDS ORDERED: ASPI-1169 PO (10:14)
== END 2020-04-19 10:27 | disposition home or self-care (01) ==
LOC: ER 07:18
DX: G40.909 Epilepsy, unspecified, not intractable, without status epilepticus (principal); I10 Essential (primary) hypertension; Z60.2 Problems related to living alone
CPT/HCPCS: 36415; 70450; 71045; 80048; 80076; 84484; 85025; 93005; 96365; 99285; J1953 ×2; J7030 ×2

== ENCOUNTER 2020-06-27 16:56 | Emergency (ER) | payer MEDICARE ==
[~2020-06-27] VITALS: Ht 177.8 cm; Wt 77.6 kg
--- NOTE | 2020-06-27 17:07 | NUR ---
BRIDGETTE FROM HOME TO ER BED 3. CALLED IN BY ROOM MATE. AAOX4. NOT IN RESP DISTRESS. BROUGHT ON FOR UNWITNESSED SEIZURE. PER EMS REPORT, PT'S ROOM MATES HEARD THE SEIZURE INCIDENT. PT HAVE HX OF SEIZURES BUT NON COMPLIANT WITH MEDICATION, TAKING KEPRA. PT IS COMPLAINING OF R PERIORBITAL PAIN. PT DOES NOT REMEMBER IF HE FELL. POSITIVE BITE ON TONGUE. PT PLACED ON SEIZURE PRECAUTION. MD AT BEDSIDE FOR EVAL. PT PLACED ON MONITOR.
--- NOTE | 2020-06-27 17:07 | NUR ---
Note undone in EDM - 06/27/20 at 1716 by KHRIS BIBRA FROM HOME TO ER BED 3. CALLED IN BY ROOM MATE. AAOX4. NOT IN RESP DISTRESS. BROUGHT ON FOR UNWITNESSED SEIZURE. PER EMS REPORT, PT'S ROOM MATES HEARD THE SEIZURE INCIDENT. PT DENIES HAVING HX OF SEIZURES. PT IS COMPLAINING OF R PERIORBITAL PAIN. PT DOES NOT REMEMBER IF HE FELL. POSITIVE BITE ON TONGUE. PT PLACED ON SEIZURE PRECAUTION. MD AT BEDSIDE FOR EVAL. PT PLACED ON MONITOR.
[2020-06-27 17:22] LABS: BASOPHILS % (AUTO) 0.7 % (0.0-2.0); EOSINOPHILS % (AUTO) 0.4 % (0.0-6.0); HEMATOCRIT 41 % (39-51); HEMOGLOBIN 13.4 g/dL (13.5-17.5); LYMPHOCYTES # (AUTO) 1.4 /CMM (0.8-4.8); LYMPHOCYTES % (AUTO) 24.2 % (20.0-44.0); MEAN CORPUSCULAR HGB CONC 33 g/dl (31.0-36.0); MEAN CORPUSCULAR VOLUME 99 fL (80-96); MONOCYTES # (AUTO) 0.5 /CMM (0.1-1.30); MONOCYTES % (AUTO) 7.9 % (2.0-12.0); NEUTROPHILS # (AUTO) 3.8 /CMM (1.8-8.9); NEUTROPHILS % (AUTO) 66.8 % (43.0-81.0); PLATELET COUNT (AUTO) 272 /CMM (150-450); RED BLOOD CELL COUNT(AUTO) 4.08 MIL/uL (4.5-6.0); WHITE BLOOD COUNT (AUTO) 5.8 K/uL (4.3-11.0)
[2020-06-27] MEDS ORDERED: LEVETIRACETAM (500MG) 1,000 MG in IV NS 0.9% 100 ML IV SCH (17:30)
--- NOTE | 2020-06-27 17:30 | NUR ---
PATIENT WENT TO CT
[2020-06-27 17:37] LABS: CALCIUM, SERUM 9.1 mg/dL (8.5-10.1); CREATININE 1.1 mg/dL (0.6-1.3); POTASSIUM 3.6 mmol/L (3.5-5.1)
--- NOTE | 2020-06-27 17:40 | NUR ---
PATIENT BACK FROM CT
[2020-06-27 17:42] LABS: ALBUMIN 4.1 g/dL (3.4-5.0); BILIRUBIN,DIRECT 0.2 mg/dL (0.0-0.2); BILIRUBIN,TOTAL 0.8 mg/dL (0.2-1.0)
--- NOTE | 2020-06-27 17:52 | NUR ---
MODESTO (ROOM MATE) [phone] / [phone]. CALL IF PT IS TO BE DISCHARGED
--- NOTE | 2020-06-27 17:52 | NUR ---
Lyubov verdugo in [facility] - 06/27/20 at 1752 by COMPA MODESTO [facility] [phone] CALL IF PT IS TO BE DISCHARGED
--- NOTE | 2020-06-27 18:16 | NUR ---
SPOKE WITH MODESTO, PT'S ROOM MATE. PT IS GOING TO BE PICKED UP WITHIN THE HOUR. PT IS IN BED RESTING COMFORTABLY. NAD NOTED.
--- NOTE | 2020-06-27 18:59 | NUR ---
PICKED UP BY HIS ROOM MATES, MODESTO, IN STABLE CONDITION. ACI INSTRUCTION GIVEN TO PT AND FRIEND. PT AMBUALTORY WITH ASSIST AND WHEEL OUT TO PT FRIEND'S CAR. NAD NOTED.
[2020-06-27 19:01] VITALS: BP 119/82
[2020-09-09] MEDS ORDERED: ASPI-1169 PO (10:14)
== END 2020-06-27 19:02 | disposition home or self-care (01) ==
LOC: ER 17:03
DX: G40.909 Epilepsy, unspecified, not intractable, without status epilepticus (principal); I10 Essential (primary) hypertension; E11.9 Type 2 diabetes mellitus without complications; Z60.2 Problems related to living alone; Z79.899 Other long term (current) drug therapy
CPT/HCPCS: 36415; 70450; 80048; 80076; 80307; 82962; 85025; 85730; 96365; 99284; J1953; J7030

== ENCOUNTER 2020-07-02 15:37 | Emergency (ER) | payer MEDICARE ==
[~2020-07-02] VITALS: Ht 180.3 cm; Wt 73.9 kg
--- NOTE | 2020-07-02 15:40 | NUR ---
Patient jose luis, from home, had witnessed seizure by roommate, post ictal. On room air, breathing evenly and unlabored. connected to the monitor and pulse ox. kept comfortable, will continue to monitor accordingly.
[2020-07-02 15:59] LABS: BASOPHILS % (AUTO) 0.3 % (0.0-2.0); HEMATOCRIT 43 % (39-51); HEMOGLOBIN 14.6 g/dL (13.5-17.5); LYMPHOCYTES # (AUTO) 0.3 /CMM (0.8-4.8); LYMPHOCYTES % (AUTO) 2.4 % (20.0-44.0); MEAN CORPUSCULAR HGB CONC 34 g/dl (31.0-36.0); MEAN CORPUSCULAR VOLUME 99 fL (80-96); MONOCYTES # (AUTO) 0.7 /CMM (0.1-1.30); MONOCYTES % (AUTO) 5.9 % (2.0-12.0); NEUTROPHILS # (AUTO) 10.8 /CMM (1.8-8.9); NEUTROPHILS % (AUTO) 91.4 % (43.0-81.0); PLATELET COUNT (AUTO) 313 /CMM (150-450); WHITE BLOOD COUNT (AUTO) 11.8 K/uL (4.3-11.0)
[2020-07-02 16:06] LABS: CALCIUM, SERUM 9.7 mg/dL (8.5-10.1); CREATININE 1.3 mg/dL (0.6-1.3); POTASSIUM 4.4 mmol/L (3.5-5.1)
--- NOTE | 2020-07-02 16:06 | NUR ---
wheeled patient via rney for ct scan
[2020-07-02 16:17] LABS: ALBUMIN 4.3 g/dL (3.4-5.0); BILIRUBIN,DIRECT 0.3 mg/dL (0.0-0.2); BILIRUBIN,TOTAL 1.1 mg/dL (0.2-1.0); TOTAL PROTEIN, SERUM 8.7 g/dL (6.4-8.2)
[2020-07-02] MEDS: LEVETIRACETAM (500MG) 1,500 MG in IV NS 0.9% 100 ML IV SCH ×2 (16:25→21:00)
[2020-07-02] MEDS ORDERED: HYDR-3972 PO (17:56)
[2020-07-02] MEDS ORDERED: LISI10TA5 PO (17:56)
[2020-07-02] MEDS ORDERED: AMLO1CAP19 PO (17:56)
--- NOTE | 2020-07-02 20:54 | NUR ---
COVID SWAB COLLECTED AND SENT TO LAB
[2020-07-02] MEDS ORDERED: LEVETIRACETAM (500MG) 500 MG/5 ML VIAL IV ONE (21:04)
--- NOTE | 2020-07-02 22:25 | NUR ---
received a call from [facility]. pt got accepted at [facility] RM#[id number]. receiving md: dr moser . report to [phone]
--- NOTE | 2020-07-02 22:38 | NUR ---
report given to mary restrepo [facility]
--- NOTE | 2020-07-03 00:19 | NUR ---
REPORT GIVEN TO AMBULANCE SHARLENEValencia
[2020-07-03 00:20] VITALS: BP 134/89
--- NOTE | 2020-07-03 00:40 | NUR ---
PT WAS PICKED UP BY AMBULANCE AND TRANSFERRED TO [facility] IN STABLE CONDITION.
== END 2020-07-03 00:50 | disposition short-term general hospital (02) ==
LOC: ER 15:39
DX: F10.239 Alcohol dependence with withdrawal, unspecified (principal); G40.509 Epileptic seizures related to external causes, not intractable, without status epilepticus; Y90.0 Blood alcohol level of less than 20 mg/100 ml; G40.909 Epilepsy, unspecified, not intractable, without status epilepticus; I10 Essential (primary) hypertension; E11.9 Type 2 diabetes mellitus without complications; Z79.899 Other long term (current) drug therapy; I67.2 Cerebral atherosclerosis
CPT/HCPCS: 36415; 70450; 71045; 80048; 80076; 80307; 85025; 85730; 87081; 87426; 96365; 99285; J1953; J7030 ×2; G0480

== ENCOUNTER 2020-07-09 14:59 | Emergency (ER) | payer MEDICARE ==
[~2020-07-09] VITALS: Ht 180.3 cm; Wt 74.8 kg
[~2020-07-09 14:59] MED LIST changes: +AMLO1CAP19 PO; +HYDR-3972 PO; +LISI10TA5 PO
--- NOTE | 2020-07-09 15:00 | NUR ---
PT BIB RA 83 FROM CLINIC,S/P SEIZURE. PT IS AAOX4, NOT IN RESPIRATORY DISTRESS, HOOKED TO PHOTORADIO OPERATOR, KEPT RESTED AND COMFORTABLE. WILL CONTINUE TO MONITOR.
--- NOTE | 2020-07-09 15:28 | NUR ---
CALL BACK FROM COUSIN MODESTO,CELL: [phone],HOME:[phone], HE WANTS TO BE CALLED TO PICK HIM UP. PMD CLINIC'S PHONE IS [phone]
--- NOTE | 2020-07-09 16:20 | NUR ---
URINE SPECIMEN COLLECTED AND SENT TO LAB.
[2020-07-09] MEDS ORDERED: LEVETIRACETAM (500MG) 1,000 MG in IV NS 0.9% 100 ML IV SCH (16:30)
--- NOTE | 2020-07-09 16:40 | NUR ---
IV LINE ESTABLISHED BLOOD DRAWN AND SENT TO LAB.
[2020-07-09 16:42] VITALS: BP 160/82
[2020-07-09 16:46] LABS: BASOPHILS % (AUTO) 0.8 % (0.0-2.0); EOSINOPHILS % (AUTO) 0.7 % (0.0-6.0); HEMATOCRIT 39 % (39-51); HEMOGLOBIN 13.1 g/dL (13.5-17.5); LYMPHOCYTES # (AUTO) 1.1 /CMM (0.8-4.8); LYMPHOCYTES % (AUTO) 20.7 % (20.0-44.0); MEAN CORPUSCULAR HGB CONC 34 g/dl (31.0-36.0); MEAN CORPUSCULAR VOLUME 100 fL (80-96); MONOCYTES # (AUTO) 0.4 /CMM (0.1-1.30); MONOCYTES % (AUTO) 7.5 % (2.0-12.0); NEUTROPHILS # (AUTO) 3.8 /CMM (1.8-8.9); NEUTROPHILS % (AUTO) 70.3 % (43.0-81.0); PLATELET COUNT (AUTO) 290 /CMM (150-450); RED BLOOD CELL COUNT(AUTO) 3.89 MIL/uL (4.5-6.0); WHITE BLOOD COUNT (AUTO) 5.3 K/uL (4.3-11.0)
--- NOTE | 2020-07-09 16:47 | NUR ---
CALLED PHARMACY FOR BISHOP.
[2020-07-09 16:52] LABS: CALCIUM, SERUM 8.8 mg/dL (8.5-10.1); CREATININE 0.9 mg/dL (0.6-1.3)
--- NOTE | 2020-07-09 18:39 | NUR ---
IV removed. Catheter intact and site benign. Pressure and 4x4 applied to site. No bleeding noted.
--- NOTE | 2020-07-09 18:42 | NUR ---
MODESTO CALLED AND WILL BE HERE IN 40 MINUTES
--- NOTE | 2020-07-09 19:55 | NUR ---
Patient discharged to home in stable condition. Written and verbal after care instructions given. Patient verbalizes understanding of instruction.
== END 2020-07-09 20:33 | disposition home or self-care (01) ==
LOC: ER 15:03
DX: G40.909 Epilepsy, unspecified, not intractable, without status epilepticus (principal); I10 Essential (primary) hypertension; E11.9 Type 2 diabetes mellitus without complications; Z91.14 Patient's other noncompliance with medication regimen; Z86.73 Personal history of transient ischemic attack (TIA), and cerebral infarction without residual deficits; Z60.2 Problems related to living alone; Z79.899 Other long term (current) drug therapy
CPT/HCPCS: 36415; 80048; 82962; 85025; 96365; 99284; J1953; J7030

== ENCOUNTER 2020-07-14 17:37 | Emergency (ER) | payer MEDICARE ==
[~2020-07-14] VITALS: Ht 182.9 cm; Wt 76.2 kg
--- NOTE | 2020-07-14 17:55 | NUR ---
JOSE DAVID RA 61 From Home "Witnessed seizure by room mate lasting couple minutes. +Incontinence NSR BS-79" Patient still post-ictal, responsive to stimuli. Vitals stable.
[2020-07-14] MEDS ORDERED: LEVETIRACETAM (500MG) 1,000 MG in IV NS 0.9% 100 ML IV SCH (18:00)
[2020-07-14 18:47] LABS: BASOPHILS % (AUTO) 0.9 % (0.0-2.0); EOSINOPHILS % (AUTO) 1.3 % (0.0-6.0); HEMATOCRIT 35 % (39-51); HEMOGLOBIN 11.9 g/dL (13.5-17.5); LYMPHOCYTES # (AUTO) 1.8 /CMM (0.8-4.8); LYMPHOCYTES % (AUTO) 47.2 % (20.0-44.0); MEAN CORPUSCULAR HGB CONC 34 g/dl (31.0-36.0); MEAN CORPUSCULAR VOLUME 99 fL (80-96); MONOCYTES # (AUTO) 0.3 /CMM (0.1-1.30); MONOCYTES % (AUTO) 6.7 % (2.0-12.0); NEUTROPHILS # (AUTO) 1.6 /CMM (1.8-8.9); NEUTROPHILS % (AUTO) 43.9 % (43.0-81.0); PLATELET COUNT (AUTO) 284 /CMM (150-450); RED BLOOD CELL COUNT(AUTO) 3.56 MIL/uL (4.5-6.0); WHITE BLOOD COUNT (AUTO) 3.7 K/uL (4.3-11.0)
--- NOTE | 2020-07-14 18:59 | NUR ---
URINE SENT TO LAB.
[2020-07-14] MEDS ORDERED: IV NS 0.9% 1,000 ML BAG IV ONE (19:00)
--- NOTE | 2020-07-14 19:16 | NUR ---
REPORT RECEIVED FROM XAVI GROSS FOR LISA
[2020-07-14 19:17] LABS: ALBUMIN 3.3 g/dL (3.4-5.0); BILIRUBIN,DIRECT 0.2 mg/dL (0.0-0.2); BILIRUBIN,TOTAL 0.5 mg/dL (0.2-1.0); CALCIUM, SERUM 7.4 mg/dL (8.5-10.1); CREATININE 0.9 mg/dL (0.6-1.3); TOTAL PROTEIN, SERUM 6.7 g/dL (6.4-8.2)
[2020-07-14] MEDS ORDERED: POTASSIUM CL. PREMIX PERIPHER. 200 ML ONE (19:48)
[2020-07-14] MEDS: POTASSIUM CL. PREMIX PERIPHER. 50 ML IV SCH ×4 (19:52→22:53)
--- NOTE | 2020-07-14 20:11 | NUR ---
PT RESTING COMFORTABLY IN BED. NO ACUTE DISTRESS NOTED. WILL CONTINUE TO MONITOR FOR SAFETY
--- NOTE | 2020-07-14 23:30 | NUR ---
CALLED PT'S ROOMMATE. NOT AVAILABLE TO PICK THE PT UP TIL 0900.
--- NOTE | 2020-07-15 01:34 | NUR ---
PT DROWSY. UNABLE TO WALK. WILL CONTINUE TO MONITOR
--- NOTE | 2020-07-15 02:32 | NUR ---
PT RESTING COMFORTABLY IN BED.CALL LIGHT WITHIN REACH.VSS. NO ACUTE DISTRESS NOTED. WILL CONTINUE TO MONITOR.
--- NOTE | 2020-07-15 03:15 | NUR ---
PT TRIED TO AMBULATE W/ ASSISTANCE. PT'S GAIT UNSTEADY. PT STILL FEELS SLEEPY. NOT IN RESPIRATORY DISTRESS. PT ASSISTED BACK TO THE BED.
--- NOTE | 2020-07-15 04:05 | NUR ---
BLOOD SUGAR OF 56 NOTED. MD MADE AWARE. FOOD TRAY PROVIDED
--- NOTE | 2020-07-15 04:10 | NUR ---
PT STATES AAOX4 STATES HE FEELS BETTER. PT NOT IN RESPIRATORY DISTRESS. VSS. WILL CONTINUE TO MONITOR THE PT
--- NOTE | 2020-07-15 05:13 | NUR ---
BLOOD SUGAR NOTED 80. MADE AWARE
--- NOTE | 2020-07-15 05:14 | NUR ---
TRIAL OF AMBULATION DONE. PT STILL HAS AN UNSTEADY GAIT. PT ASSISTED BACK TO BED. VSS. NOT IN RESPIRATORY DISTRESS. CALL LIGHT WITHIN REACH.
--- NOTE | 2020-07-15 06:53 | NUR ---
WAREHOUSE PACKER AT [phone]
--- NOTE | 2020-07-15 07:15 | NUR ---
REPORT GIVEN TO XAVI GROSS FOR LISA
--- NOTE | 2020-07-15 07:16 | NUR ---
PT WILL GET PICKED UP BY LESLEY SALVADOR'S ROOMMATE [phone]
--- NOTE | 2020-07-15 07:34 | NUR ---
PATIENT A/OX4, VERBALLY RESPONSIVE SITTING AT EDGE OF BED, GIVEN APPLESAUCE, PUDDING, AND OJ.
--- NOTE | 2020-07-15 08:27 | NUR ---
IV removed. Catheter intact and site benign. Pressure and 4x4 applied to site. No bleeding noted. Patient a/ox4, able to ambulate with steady gait. Discharged to home in stable condition. Written and verbal after care instructions given. Patient verbalizes understanding of instruction. Instructed not to drive.
[2020-07-15 08:29] VITALS: BP 134/86
== END 2020-07-15 08:29 | disposition home or self-care (01) ==
LOC: ER 17:49
DX: G40.909 Epilepsy, unspecified, not intractable, without status epilepticus (principal); F10.129 Alcohol abuse with intoxication, unspecified; E87.6 Hypokalemia; I10 Essential (primary) hypertension; E11.9 Type 2 diabetes mellitus without complications; Z91.19 Patient's noncompliance with other medical treatment and regimen; Z86.73 Personal history of transient ischemic attack (TIA), and cerebral infarction without residual deficits; Z79.899 Other long term (current) drug therapy
CPT/HCPCS: 36415; 70450; 80048; 80076; 80305; 80307; 82962 ×2; 85025; 96361; 96365; 96366; 96367; 99285; J1953; J3480; J7030 ×2; J7040; G0480

== ENCOUNTER 2020-07-31 12:27 | Emergency (ER) | payer MEDICARE ==
[~2020-07-31] VITALS: Ht 180.3 cm; Wt 74.8 kg
--- NOTE | 2020-07-31 12:35 | NUR ---
JOSE DAVID RA60 From Home "Father states he had a seizure lasting couple min now post ictal. On Keppra" Rasta (Father) [phone]. On room air, breathing evenly and unlabored. connected to the monitor and pulse ox. kept comfortable, will continue to monitor accordingly.
--- NOTE | 2020-07-31 12:40 | NUR ---
blood drawned and sent to lab
[2020-07-31 12:58] LABS: BASOPHILS % (AUTO) 0.3 % (0.0-2.0); EOSINOPHILS % (AUTO) 0.5 % (0.0-6.0); HEMATOCRIT 41 % (39-51); HEMOGLOBIN 13.7 g/dL (13.5-17.5); LYMPHOCYTES % (AUTO) 19.7 % (20.0-44.0); MEAN CORPUSCULAR HGB CONC 33 g/dl (31.0-36.0); MEAN CORPUSCULAR VOLUME 100 fL (80-96); MONOCYTES # (AUTO) 0.5 /CMM (0.1-1.30); MONOCYTES % (AUTO) 9.6 % (2.0-12.0); NEUTROPHILS # (AUTO) 3.4 /CMM (1.8-8.9); NEUTROPHILS % (AUTO) 69.9 % (43.0-81.0); PLATELET COUNT (AUTO) 237 /CMM (150-450); RED BLOOD CELL COUNT(AUTO) 4.09 MIL/uL (4.5-6.0); WHITE BLOOD COUNT (AUTO) 4.9 K/uL (4.3-11.0)
[2020-07-31] MEDS ORDERED: LEVETIRACETAM (500MG) 500 MG in IV NS 0.9% 100 ML IV ONE (13:00)
[2020-07-31] MEDS ORDERED: IV NS 0.9% 1,000 ML BAG IV ONE (13:00)
[2020-07-31 13:10] LABS: CALCIUM, SERUM 9.1 mg/dL (8.5-10.1); CARBON DIOXIDE 24 mmol/L (21-32); CHLORIDE 106 mmol/L (98-107); CREATININE 0.9 mg/dL (0.6-1.3); GLUCOSE 99 mg/dL (74-106); POTASSIUM 3.9 mmol/L (3.5-5.1); SODIUM SERUM 142 mmol/L (136-145); UREA NITROGEN, BLOOD 15 mg/dL (7-18)
[2020-07-31 13:15] LABS: ALANINE AMINOTRANSFERASE 14 U/L (12-78); ALBUMIN 4.2 g/dL (3.4-5.0); ALCOHOL, BLOOD < 3 mg/dL (0-0); ALKALINE PHOSPHATASE 83 U/L (46-116); ASPARTATE AMINOTRANSFERASE 28 U/L (15-37); BILIRUBIN,DIRECT 0.3 mg/dL (0.0-0.2); BILIRUBIN,TOTAL 1.6 mg/dL (0.2-1.0); TOTAL PROTEIN, SERUM 8.3 g/dL (6.4-8.2)
--- NOTE | 2020-07-31 15:39 | NUR ---
CALLED MODESTO [phone]
[2020-07-31 16:14] VITALS: BP 145/81
== END 2020-07-31 16:14 | disposition home or self-care (01) ==
LOC: ER 12:30
DX: G40.909 Epilepsy, unspecified, not intractable, without status epilepticus (principal); R41.0 Disorientation, unspecified; I10 Essential (primary) hypertension; E11.9 Type 2 diabetes mellitus without complications; Z86.73 Personal history of transient ischemic attack (TIA), and cerebral infarction without residual deficits; Z79.899 Other long term (current) drug therapy
CPT/HCPCS: 36415; 80048; 80076; 80307; 82962; 85025; 93005; 96365; 99284; J1953; J7030 ×2; G0480

== ENCOUNTER 2020-08-25 09:20 | Emergency (ER) | payer MEDICARE ==
[~2020-08-25] VITALS: Ht 180.3 cm; Wt 74.8 kg
--- NOTE | 2020-08-25 09:20 | NUR ---
DR ZHENG AT BEDSIDE
[2020-08-25] MEDS: LEVETIRACETAM (500MG) 1,000 MG in IV NS 0.9% 100 ML IV SCH (09:30)
--- NOTE | 2020-08-25 09:30 | NUR ---
BIBRA60 FRM HOME FOR WITNESSED SEIZURE BY ROOMATE. POST ICTAL, BG 162. PATIENT A/OX1-2, POST-ICTAL, BREATHING EVEN AND UNLABORED, NO SOB NOTED, ATTACHED TO THE SUPERVISOR PRE WAVE.
[2020-08-25 09:32] LABS: BASOPHILS % (AUTO) 0.5 % (0.0-2.0); EOSINOPHILS % (AUTO) 1.1 % (0.0-6.0); HEMATOCRIT 39 % (39-51); LYMPHOCYTES # (AUTO) 1.3 /CMM (0.8-4.8); LYMPHOCYTES % (AUTO) 25.4 % (20.0-44.0); MEAN CORPUSCULAR HGB CONC 34 g/dl (31.0-36.0); MEAN CORPUSCULAR VOLUME 101 fL (80-96); MONOCYTES # (AUTO) 0.4 /CMM (0.1-1.30); MONOCYTES % (AUTO) 8.9 % (2.0-12.0); NEUTROPHILS # (AUTO) 3.2 /CMM (1.8-8.9); NEUTROPHILS % (AUTO) 64.1 % (43.0-81.0); PLATELET COUNT (AUTO) 249 /CMM (150-450); RED BLOOD CELL COUNT(AUTO) 3.86 MIL/uL (4.5-6.0)
[2020-08-25 09:37] LABS: CARBON DIOXIDE 19 mmol/L (21-32); CHLORIDE 104 mmol/L (98-107); CREATININE 1.1 mg/dL (0.6-1.3); GLUCOSE 109 mg/dL (74-106); POTASSIUM 3.9 mmol/L (3.5-5.1); SODIUM SERUM 141 mmol/L (136-145); UREA NITROGEN, BLOOD 11 mg/dL (7-18)
[2020-08-25 09:42] LABS: ALANINE AMINOTRANSFERASE 16 U/L (12-78); ALBUMIN 3.6 g/dL (3.4-5.0); ALCOHOL, BLOOD < 3 mg/dL (0-0); ALKALINE PHOSPHATASE 80 U/L (46-116); ASPARTATE AMINOTRANSFERASE 27 U/L (15-37); BILIRUBIN,DIRECT 0.3 mg/dL (0.0-0.2); BILIRUBIN,TOTAL 1.6 mg/dL (0.2-1.0); TOTAL PROTEIN, SERUM 7.6 g/dL (6.4-8.2)
[2020-08-25] MEDS: IV NS 0.9% 1,000 ML BAG IV ONE (09:45)
--- NOTE | 2020-08-25 12:05 | NUR ---
MIKA SALVADOR CALLED. ETA 30-45 MINS
--- NOTE | 2020-08-25 12:33 | NUR ---
IV removed. Catheter intact and site benign. Pressure and 4x4 applied to site. No bleeding noted.
--- NOTE | 2020-08-25 12:55 | NUR ---
PATIENT PICKED UP BY ROOM MATE MODESTO IN STABLE CONDITION. Written and verbal after care instructions given. Patient verbalizes understanding of instruction.
[2020-08-25 12:57] VITALS: BP 142/99
== END 2020-08-25 12:58 | disposition home or self-care (01) ==
LOC: ER 09:22
DX: G40.909 Epilepsy, unspecified, not intractable, without status epilepticus (principal); E86.0 Dehydration; R41.0 Disorientation, unspecified; Z91.19 Patient's noncompliance with other medical treatment and regimen; I10 Essential (primary) hypertension; E11.9 Type 2 diabetes mellitus without complications; Z86.73 Personal history of transient ischemic attack (TIA), and cerebral infarction without residual deficits; Z79.899 Other long term (current) drug therapy
CPT/HCPCS: 36415; 80048; 80076; 80307; 84484; 85025; 93005; 96365; 99284; J1953; J7030 ×2

== ENCOUNTER 2020-09-06 16:02 | Inpatient (IN) | payer MEDICARE ==
[~2020-09-06] VITALS: Ht 180.3 cm; Wt 71.7 kg
--- NOTE | 2020-09-06 16:15 | NUR ---
JOSE DAVID RA 89 From Home "tonic/clonic seizure witnessed by room mate. Lasted 10-15min. BS-64. PT AAOX3, VSS. RR EVEN & UNLABORED. DENIES CP, SOB, N/V, AMADOR AT THIS TIME. DR. FRANKLIN AT BS FOR EVAL. PLACED ON PHYSICS INSTRUCTOR, SR. SEIZURE PRECAUTION INITIATTED. WILL CONT TO MONITOR.
[2020-09-06] MEDS ORDERED: LEVETIRACETAM (500MG) 1,000 MG in IV NS 0.9% 100 ML IV SCH (16:30)
--- NOTE | 2020-09-06 16:36 | NUR ---
PT EATING SANDWICH & DRINKING OJ, PT SERG WELL.
[2020-09-06 16:47] LABS: BASOPHILS % (AUTO) 0.8 % (0.0-2.0); EOSINOPHILS % (AUTO) 1.7 % (0.0-6.0); HEMATOCRIT 42 % (39-51); HEMOGLOBIN 13.9 g/dL (13.5-17.5); LYMPHOCYTES % (AUTO) 38.5 % (20.0-44.0); MEAN CORPUSCULAR HGB CONC 33 g/dl (31.0-36.0); MEAN CORPUSCULAR VOLUME 102 fL (80-96); MONOCYTES # (AUTO) 0.3 /CMM (0.1-1.30); MONOCYTES % (AUTO) 5.2 % (2.0-12.0); NEUTROPHILS # (AUTO) 2.7 /CMM (1.8-8.9); NEUTROPHILS % (AUTO) 53.8 % (43.0-81.0); PLATELET COUNT (AUTO) 316 /CMM (150-450); RED BLOOD CELL COUNT(AUTO) 4.11 MIL/uL (4.5-6.0); WHITE BLOOD COUNT (AUTO) 5.1 K/uL (4.3-11.0)
[2020-09-06 16:57] LABS: CALCIUM, SERUM 8.4 mg/dL (8.5-10.1); CREATININE 0.7 mg/dL (0.6-1.3); POTASSIUM 3.4 mmol/L (3.5-5.1)
[2020-09-06 17:02] LABS: ALBUMIN 3.6 g/dL (3.4-5.0); BILIRUBIN,DIRECT 0.2 mg/dL (0.0-0.2); BILIRUBIN,TOTAL 0.8 mg/dL (0.2-1.0); TOTAL PROTEIN, SERUM 7.8 g/dL (6.4-8.2)
[2020-09-06 17:20] LABS: THYROID STIMULATING HORMONE 0.677 uIU/mL (0.358-3.74)
--- NOTE | 2020-09-06 17:40 | NUR ---
PANEL ON-CALL PAGED
--- NOTE | 2020-09-06 17:49 | NUR ---
PAGED [facility].
--- NOTE | 2020-09-06 18:32 | NUR ---
PT ASLEEP, EASILY AWAKEN BY VERBAL STIMULI. DENIES CP, SOB, DIZZINESS, AMADOR, N/V AT THIS TIME. WILL CONT TO MONITOR.
--- NOTE | 2020-09-06 19:35 | NUR ---
CALLED NURSING SUP FOR BED
[2020-09-06] MEDS ORDERED: ACETAMINOPHEN 325 MG TABLET PO PRN (20:00)
[2020-09-06] MEDS ORDERED: HYDROCODONE/APAP 5/325MG TABLET PO PRN (20:00)
[2020-09-06] MEDS ORDERED: MAGNESIUM HYDROXIDE 30 ML UDC PO PRN (20:00)
[2020-09-06] MEDS ORDERED: Z GUARD REMEDY 2 OZ OINT TP PRN (20:00)
[2020-09-06] MEDS ORDERED: MAG HYDROX/AL HYDROX/SIMETH 30 ML UDC PO PRN (20:00)
[2020-09-06] MEDS ORDERED: CLONIDINE HCL 0.1 MG TABLET PO PRN (20:00)
[2020-09-06] MEDS ORDERED: ONDANSETRON HCL/PF 4 MG/2 ML VIAL IVP PRN (20:00)
[2020-09-06] MEDS ORDERED: IV NS 0.9% 1,000 ML IV PRN (20:00)
--- NOTE | 2020-09-06 20:04 | NUR ---
TELE 325-2
--- NOTE | 2020-09-06 20:14 | NUR ---
REPORT GIVEN TO XAVI MAXWELL FOR LISA.
[2020-09-06 20:30] VITALS: BP 177/111
--- NOTE | 2020-09-06 20:30 | NUR ---
PATIENT CAME FROM ER, AWAKE, A/O X3, WITH SLIGHTLY GARBLED SPEECH. NO S/S OF DISTRESS NOTED. NO COMPLAIN OF PAIN. AMBULATORY WITH STANDBY ASSIST. CALL LIGHT WITHIN REACH, INSTRUCTED PATIENT TO CALL FOR ASSISTANCE,PATIENT VERBALIZED UNDERSTANDING. BED ALARM ON. BED IN LOWEST AND LOCKED POSITION. LOWER LIP SWOLLEN. URINAL AT THE BEDSIDE.
[2020-09-06 20:45] VITALS: BP 177/111
[2020-09-06] MEDS ORDERED: POTASSIUM CHLORIDE 20 MEQ TAB.PRT.SR PO ONE (21:00)
--- NOTE | 2020-09-06 23:06 | NUR ---
DR SANTOS CAME AND SEEN THE PATIENT.
[2020-09-07] VITALS: BP 135/79
[2020-09-07 00:23] VITALS: BP 127/88
[2020-09-07] MEDS ORDERED: POTASSIUM CHLORIDE 20 MEQ TAB.PRT.SR PO ONE (00:30)
[2020-09-07] MEDS ORDERED: LORAZEPAM 0.5 MG TABLET PO PRN (00:30)
--- NOTE | 2020-09-07 03:13 | NUR ---
IV ON THE LEFT WRIST G20 WAS LEAKING, NEW IV INSERTED ON THE RIGHT HAND G24.
[2020-09-07 04:00] VITALS: BP 126/88
--- NOTE | 2020-09-07 04:23 | NUR ---
patient removed his IV OUT,TIP IS INTACT,NO BLEEDING NOTED.
--- NOTE | 2020-09-07 05:07 | NUR ---
IV REINSERTED BY XAVI HOLT AT RIGHT AC G20.
--- NOTE | 2020-09-07 05:45 | NUR ---
CALLED EPIC RE: MED- K-DUR 40 CLARIFICATIONS, AND DVT PUMP ORDER WILL PAGE DR SANTOS.
--- NOTE | 2020-09-07 06:25 | NUR ---
ENVIRONMENTAL HEALTH OFFICER CLOSING NOTES: PATIENT IN BED, ASLEEP, AROUSABLE, NO S/S OF DISTRESS NOTED. NO COMPLAIN OF PAIN DURING THE SHIFT. CALL LIGHT WITHIN REACH. BED ALARM ON. BED IN LOWEST AND LOCKED POSITION. NO RESPONSE YET FROM DR SANTOS RE CLARIFICATION OF THE MED- K-DUR 40 MEQ PO AND TO OBTAIN ORDER FOR THE DVT PUMS, WILL ENDORSE TO THE NEXT SHIFT RN. NO SEIZURE EPISODE NOTED.
--- NOTE | 2020-09-07 07:30 | NUR ---
DENIAL RESOLUTION SPECIALIST NOTES PATIENT RECEIVED IN BED SLEEPING EASILY AWAKEN BY NAME. ALERT AND ORIENTED X 2-3 WITH EPISODE OF FORGETFULNESS, ABLE TO REORIENT PATIENT. ON COTTON WEIGHER SINUS RHYTHM 90'S. ON ROOM AIR WITH NO SIGNS OF RESPIRATORY DISTRESS WITH EVEN NON-LABORED BREATHING AND NO SIGNS OF SOB NOTED AT THIS TIME. PATIENT IV ACCESS INTACT AND PATENT. PATIENT REFUSED LAB DRAW IN THE MORNING, LAB WILL TRY AGAIN. SAFETY PRECAUTIONS IMPLEMENTED WITH BED LOCKED, BED IN THE LOWEST POSITION, BILATERAL SIDE RAILS UP/ SEIZURE PRECAUTIONS IMPLEMENTED AND CALL LIGHT WITHIN EASY REACH OF THE PATIENT. WILL CONTINUE TO MONITOR.
[2020-09-07 08:00] VITALS: BP 139/99
[2020-09-07] MEDS: THIAMINE HCL 100 MG TABLET PO SCH (08:18)
[2020-09-07] MEDS: LEVETIRACETAM (250 MG) 250 MG TABLET PO SCH ×2 (08:18→16:16)
[2020-09-07] MEDS: LISINOPRIL (10MG) 10 MG TABLET PO SCH (08:18)
[2020-09-07] MEDS: CHLORDIAZEPOXIDE HCL 10 MG CAPSULE PO SCH ×2 (08:19→16:16)
[2020-09-07] MEDS: FOLIC ACID 1 MG TABLET PO SCH (08:19)
[2020-09-07] MEDS: MULTIVITAMINS,THERAGRAN 1 UDTAB TABLET PO SCH (08:19)
--- NOTE | 2020-09-07 09:26 | NUR ---
WOUND CARE CONSULT: PT PRESENTS INDEPENDENT WITH BED MOBILITY AND CONTINENT WITH LEFT KNEE SCAR, PRESENT ON ADMISSION. WILL SEE PRN.
--- NOTE | 2020-09-07 13:45 | NUR ---
METHOD CONSULTANT NOTES PATIENT REMOVED IV ACCESS, IV CATHETER TIP INTACT AND APPLIED PRESSURE TO SITE. NO IV ACCESS AT THIS TIME. PATIENT ALSO REMOVED PAPER MILL SUPERINTENDENT LEADS INFORMED HIM AND REORIENTED PATIENT THE NEED FOR THE PAPER MILL SUPERINTENDENT. WILL CONTINUE TO MONITOR PATIENT.
--- NOTE | 2020-09-07 13:55 | NUR ---
THERAPEUTIC DIETITIAN NOTES HOSPITALIST NICHELLE BUCK DNP, MADE AWARE THAT PATIENT REMOVED IV ACCESS LINE. WILL CONTINUE TO MONITOR PATIENT.
--- NOTE | 2020-09-07 14:45 | NUR ---
Risk Assessment Analyst consult requested by Ragini Barajas MD for alcohol abuse. Patient is a 70 year-old male. Patient is alert and oriented x2/3. Patient confirmed date of , social security number, and current address on face sheet. Per patient report, he has been at his current address for 17 years. Patient throughout this assessment changed this several times and stated 15 years and 12 years. Patient can recall that he was arranged this living situation by Mr. Whittaker who was the President of the [place] [employer] [email or web address] [facility] and that is how he has been at this location. Patient then reported that he has been living at his current address for about a week now and prior to this week he was living at [facility] because he was a student. Patient repeated this information to this SW several times during this assessment. Patient kept stating "I walk to the track and run at least four laps five days a week." Patient can recall events from several years ago but current memory seems to fade. Patient stated several times that he has had a history of seizures but also mentioned stroke. When this SW asked for a clarification the patient only reported seizures and again mentioned after stroke. Patient only reports drinking Cabernet Sauvignon and Marina Jes 3 times a week. Reported the use of Marijuana in 1967 but not current use. SW to follow up with sports book writer Jina regarding this patient. SW to remain available for all needs regarding this patient. Addendum: 09/07/20 at 1500 by MERLE NORTH SW Patient also stated that Rasta Bartlett would be the primary contact and can pick him up once medically cleared.
[2020-09-07] MEDS: ASPIRIN 81 MG TAB.CHEW PO SCH (14:59)
[2020-09-07 15:13] LABS: BASOPHILS # (AUTO) 0.2 /CMM (0.0-0.2); BASOPHILS % (AUTO) 3.1 % (0.0-2.0); EOSINOPHILS % (AUTO) 1.7 % (0.0-6.0); HEMATOCRIT 44 % (39-51); HEMOGLOBIN 14.6 g/dL (13.5-17.5); MEAN CORPUSCULAR HGB CONC 33 g/dl (31.0-36.0); MEAN CORPUSCULAR VOLUME 99 fL (80-96); MONOCYTES # (AUTO) 0.3 /CMM (0.1-1.30); MONOCYTES % (AUTO) 6.3 % (2.0-12.0); NEUTROPHILS # (AUTO) 3.8 /CMM (1.8-8.9); NEUTROPHILS % (AUTO) 69.9 % (43.0-81.0); PLATELET COUNT (AUTO) 336 /CMM (150-450); WHITE BLOOD COUNT (AUTO) 5.5 K/uL (4.3-11.0)
[2020-09-07 16:08] VITALS: BP 136/92
[2020-09-07 16:35] LABS: POTASSIUM 3.6 mmol/L (3.5-5.1)
[2020-09-07 16:36] LABS: CALCIUM, SERUM 8.7 mg/dL (8.5-10.1); CREATININE 0.9 mg/dL (0.6-1.3); MAGNESIUM 1.9 mg/dL (1.8-2.4); PHOSPHORUS 3.9 mg/dL (2.5-4.9)
--- NOTE | 2020-09-07 17:26 | NUR ---
LABORER CEMENT GUN PLACING NOTES PATIENT BECAME RESTLESS, ANXIOUS AND REMOVED PRINTED CIRCUIT BOARD PANELS DEVELOPER. REORIENTED PATIENT AND PROVIDED CALM ENVIRONMENT FOR THE PATIENT. ADMINISTERED PRN ATIVAN ORDERED 0.5 mg PO. WILL CONTINUE TO MONITOR PATIENT.
--- NOTE | 2020-09-07 18:51 | NUR ---
HOME HEALTH REGISTERED NURSE NOTES PATIENT BED ALERT AND ORIENTED X 2 WITH EPISODE OF FORGETFULNESS AND PERIODS OF CONFUSION ABLE TO REORIENT PATIENT. ON VIOLIN MAKER HAND SINUS RHYTHM 67. ON ROOM AIR WITH NO SIGNS OF RESPIRATORY DISTRESS WITH EVEN NON-LABORED BREATHING AND NO SIGNS OF SOB NOTED AT THIS TIME. NO IV ACCESS AT THIS TIME, HOSPITALIST MADE AWARE. SAFETY PRECAUTIONS IMPLEMENTED WITH BED LOCKED, BED IN THE LOWEST POSITION, BILATERAL SIDE RAILS UP/ SEIZURE PRECAUTIONS IMPLEMENTED, BED ALARM ON AND CALL LIGHT WITHIN EASY REACH OF THE PATIENT. WILL ENDORSE PLAN OF CARE TO UPCOMING RN.
--- NOTE | 2020-09-07 19:30 | NUR ---
MS RN PT IN BED A/O X 2 NEEDS FREQUENT RE ORIENTATION PT NON COMPLAINT DOESN'T WANT IVP INSERTION AT THIS TIME DESPITE EXPLAINING RISKS AND BENEFITS. NO S/S OF DISTRESS, STABLE. SAFETY MEASURES IN PLACE WILL CONT TO MONITOR Addendum: 09/07/20 at 1953 by SHREE ALSTON RN PT REFUSED TELEMETRY PLACEMENT DESPITE EXPLAINING RISKS AND BENEFITS OFFERED 3 TIMES PT REFUSED
--- NOTE | 2020-09-07 19:59 | NUR ---
BATTERYMAN PT REMOVING GOWN IN THE HALLWAY SECURITY CALLED
[2020-09-07 20:00] VITALS: BP 151/110
--- NOTE | 2020-09-07 20:03 | NUR ---
ENVIRONMENTAL LABORATORY TECHNICIAN PT BEING AGGRESSIVE, UNMANAGEABLE BEHAVIOR. BANGING THE NURSES COMPUTER, PAGED HOSPITALIST FOR ORDER
--- NOTE | 2020-09-07 20:07 | NUR ---
SPOKE TO RELAYED PT BEHAVIOR BEING AGGRESSIVE AND HAVING LASCIVIOUS GESTURE EXPOSING GENITALS IN THE HALLWAY SHOUTING AT NURSES, DESPITE EXPLAINING RISKS AND BENEFITS. RECEIVE TEL ORDERS OF ATIVAN 1MG IM Q6HR FOR AGGRESSIVE BEHAVIOR AND BILATERAL WRIST RESTRAINT FOR SAFETY READ BACK AND VERIFIED ORDERS NOTED AND CARRIED OUT
[2020-09-07] MEDS ORDERED: LORAZEPAM INJ 2 MG/ML VIAL IM PRN (20:30)
--- NOTE | 2020-09-07 22:00 | NUR ---
PT CALM AT THIS TIME. WILL CONT TO MONITOR PT'S BEHAVIOR. PT STILL TRYING TO REMOVE RESTRAINT
--- NOTE | 2020-09-07 22:30 | NUR ---
PLACED TELE MONITOR WHILE PT ASLEEP PT CALM AT THIS BILATERAL SOFT WRIST RESTRAINT ON CONT TO MONITOR
[2020-09-08] VITALS: BP 140/77
[2020-09-08 04:00] VITALS: BP 114/62
--- NOTE | 2020-09-08 06:17 | NUR ---
MONITORED ACCORDINGLY, ALL NEEDS ATTENDED AND ANTICIPATED, KEPT CLEAN, DRY AND COMFORTABLE. NO S/S OF DISTRESS, SB 57'S ON CARDIAC MONITORING. BILATERAL SOFT WRIST RESTRAINT WITH NO S/S OF IMPAIRED CIRCULATION. 1:1 SITTER ORDER FOR SAFETY, NO C/O PAIN AT THIS TIME. SAFETY MEASURES AT ALL TIMES. ENDORSE TO NEXT SHIFT POC.
--- NOTE | 2020-09-08 06:52 | NUR ---
PT NOW HAS 1:1 SITTER D/C RESTRAINT
--- NOTE | 2020-09-08 07:30 | NUR ---
TIMEKEEPER NOTES PT IN BED, ASLEEP, EASY TO AROUSE, LABS BEING DRAWN, CALM AT THIS TIME, SITTER AT BEDSIDE, CALL LIGHT WITHIN REACH, WILL CONTINUE TO MONITOR.
[2020-09-08 08:00] VITALS: BP 142/94
[2020-09-08] MEDS: MULTIVITAMINS,THERAGRAN 1 UDTAB TABLET PO SCH (08:48)
[2020-09-08] MEDS: ASPIRIN 81 MG TAB.CHEW PO SCH (08:48)
[2020-09-08] MEDS: FOLIC ACID 1 MG TABLET PO SCH (08:48)
[2020-09-08] MEDS: THIAMINE HCL 100 MG TABLET PO SCH (08:49)
[2020-09-08] MEDS: LISINOPRIL (10MG) 10 MG TABLET PO SCH (08:49)
[2020-09-08] MEDS: LEVETIRACETAM (250 MG) 250 MG TABLET PO SCH ×2 (08:49→16:37)
[2020-09-08 08:55] LABS: CALCIUM, SERUM 8.6 mg/dL (8.5-10.1); CREATININE 0.8 mg/dL (0.6-1.3); POTASSIUM 3.3 mmol/L (3.5-5.1)
[2020-09-08] MEDS: CHLORDIAZEPOXIDE HCL 10 MG CAPSULE PO SCH ×2 (09:01→16:36)
--- NOTE | 2020-09-08 09:19 | NUR ---
JUVENILE CORRECTIONS OFFICER NOTES PT ASLEEP, EASY TO AROUSE, PT TOOK HIS MEDS AND SAID HE WILL EAT LATER AND WENT BACK TO SLEEP.
[2020-09-08] MEDS ORDERED: POTASSIUM CHLORIDE 20 MEQ TAB.PRT.SR PO SCH (10:00)
--- NOTE | 2020-09-08 13:12 | NUR ---
CORPORATE STRATEGY ANALYST NOTES PT IN BED, RESTING, ALERT AND VERBALLY RESPONSIVE, NO COMPLAINT AT THIS TIME, NO BEHAVIOR PROBLEM AT THIS TIME, SEEN AND EXAMINED BY DR. BUCK, PT REFUSING IV INSERTION, AWARE, PLAN OF CARE DISCUSSED WITH PT, SITTER AT BEDSIDE, SAFETY PRECAUTIONS OBSERVED, PT SEEN BY PHYSICAL THERAPIST EARLIER, TOLERATED EXERCISES WELL.
[2020-09-08 16:00] VITALS: BP 105/74
--- NOTE | 2020-09-08 18:29 | NUR ---
FLYING II INSTRUCTOR NOTES PT IN BED, ASLEEP, EASY TO AROUSE, ALERT AND VERBALLY RESPONSIVE, NO COMPLAINT OF PAIN OR ANY DISCOMFORT, SITTER AT BEDSIDE, NO BEHAVIOR PROBLEM NOTED, SEEN BY DR. BUCK TODAY, TOLERATES CURRENT DIET, COMPLIANT WITH MEDS.
--- NOTE | 2020-09-08 19:05 | NUR ---
RN OPENING NOTES Received patient asleep on bed, on RA. No s/sx of discomfort/distress noted at this time. On tele monitor with NSR noted. No IVF access noted, MD aware. With 1:1 sitter at bedside at all times. On fall and aspiration precautions. Will continue to monitor accordingly.
[2020-09-08 20:00] VITALS: BP 110/72
--- NOTE | 2020-09-09 06:20 | NUR ---
RN CLOSING NOTES Pt asleep on bed. No new complaints noted. Noted ambulated to bathroom with stand by assist. All nursing needs attended. Behavior appropriate noted. With sitter at bedside at all times. Kept on bed clean, dry and comfortable. Endorsed.
[2020-09-09 08:00] VITALS: BP_SYST 110; BP_SYST 116; BP_DIAS 72; BP_DIAS 77
[2020-09-09] MEDS: MULTIVITAMINS,THERAGRAN 1 UDTAB TABLET PO SCH (08:52)
[2020-09-09] MEDS: ASPIRIN 81 MG TAB.CHEW PO SCH (08:52)
[2020-09-09] MEDS: THIAMINE HCL 100 MG TABLET PO SCH (08:52)
[2020-09-09] MEDS: LEVETIRACETAM (250 MG) 250 MG TABLET PO SCH (08:52)
[2020-09-09 08:53] VITALS: BP 110/72
[2020-09-09 08:53] LABS: CALCIUM, SERUM 8.8 mg/dL (8.5-10.1); CREATININE 0.9 mg/dL (0.6-1.3); POTASSIUM 3.8 mmol/L (3.5-5.1)
[2020-09-09] MEDS: LISINOPRIL (10MG) 10 MG TABLET PO SCH (08:53)
[2020-09-09] MEDS: FOLIC ACID 1 MG TABLET PO SCH (08:53)
[2020-09-09] MEDS: CHLORDIAZEPOXIDE HCL 10 MG CAPSULE PO SCH (09:03)
[2020-09-09] MEDS ORDERED: ASPI-1169 PO (10:14)
--- NOTE | 2020-09-09 11:50 | NUR ---
Patient is able to ambulate with assistance .
--- NOTE | 2020-09-09 14:00 | NUR ---
Patient awake , alert and oriented x 3 , able to ambulate with assistance. Patient cleared for d/c to home with home health by MD. All needs attended prior discharge. Patient instructed to continue on home meds including Keppra; patient verbalized understanding. Patient refused to take d/c picture. Wound assessed and its a dry scab. Patient had no IV line. D/C instructions and valuable form sighed and placed in the chart. [facility] and picked up by his roommate.
== END 2020-09-09 14:00 | disposition home health service (06) | DRG 100 ==
LOC: ER 16:10 → TELE 20:08 → MED 09-09 08:07
PROVIDERS: ADMIT Internal Medicine; ATTEND Nurse Practitioner Acute Care
DX: G40.909 Epilepsy, unspecified, not intractable, without status epilepticus (principal); G93.41 Metabolic encephalopathy; I69.354 Hemiplegia and hemiparesis following cerebral infarction affecting left non-dominant side; E87.0 Hyperosmolality and hypernatremia; F10.239 Alcohol dependence with withdrawal, unspecified; T51.0X1A Toxic effect of ethanol, accidental (unintentional), initial encounter; F10.229 Alcohol dependence with intoxication, unspecified; E87.6 Hypokalemia; E86.1 Hypovolemia; E86.0 Dehydration; Z59.0 Homelessness; H54.61 Unqualified visual loss, right eye, normal vision left eye; Y90.8 Blood alcohol level of 240 mg/100 ml or more; I10 Essential (primary) hypertension; E11.9 Type 2 diabetes mellitus without complications
CPT/HCPCS: 36415; 71045-TC; 80048-TC; 80076-TC; 82962-TC; 83735-TC; 84100-TC; 84443-TC; 85025-TC; 87081-TC; 97110-TC; 97116-TC; 97530-TC; C9803-CS; G0378; G0480; J1953; J2060; J7030

== ENCOUNTER 2021-03-25 15:35 | Emergency (ER) | payer MEDICARE ==
[~2021-03-25] VITALS: Ht 165.1 cm; Wt 83.9 kg
[~2021-03-25 15:35] MED LIST changes: +ASPI-1169 PO; +LISI10TA29 PO; -LISI10TA5 PO
--- NOTE | 2021-03-25 15:42 | NUR ---
BRIDGETTE FROM HOME TO ER BED 12. POST ICTAL. NOT IN RESP DISTRESS, BREATHING EVEN AND UNLABORED. BROUGHT INFOR A WITNESSED SEIZURE BY ROOM MATE DESCRIBED TONIC CLONIC LASTING 20-30 SEC PER REPORT. PT OBTAINED A HEADTRAUMA, LANDED FACE FIRST ON THE GROUND PER REPORT, THAT LEAD TO A NOSE BLEED. PT'S HAS HX OF SX, LAST EPISODE 1 MONTH AGO. SEIZURE PRECAUTION IN PLACE. 1:1 SITTER WITH IN SIGHT. AWAITING MD FOR EVAL.
[2021-03-25] MEDS ORDERED: LEVETIRACETAM (500MG) 1,000 MG in IV NS 0.9% 100 ML IV SCH (17:00)
[2021-03-25 17:04] LABS: BASOPHILS % (AUTO) 0.6 % (0.0-2.0); EOSINOPHILS % (AUTO) 0.3 % (0.0-6.0); HEMATOCRIT 42 % (39-51); LYMPHOCYTES # (AUTO) 0.8 /CMM (0.8-4.8); LYMPHOCYTES % (AUTO) 12.5 % (20.0-44.0); MEAN CORPUSCULAR HGB CONC 34 g/dl (31.0-36.0); MEAN CORPUSCULAR VOLUME 98 fL (80-96); MONOCYTES # (AUTO) 0.5 /CMM (0.1-1.30); MONOCYTES % (AUTO) 6.9 % (2.0-12.0); NEUTROPHILS # (AUTO) 5.3 /CMM (1.8-8.9); NEUTROPHILS % (AUTO) 79.7 % (43.0-81.0); PLATELET COUNT (AUTO) 319 /CMM (150-450); RED BLOOD CELL COUNT(AUTO) 4.23 MIL/uL (4.5-6.0); WHITE BLOOD COUNT (AUTO) 6.7 K/uL (4.3-11.0)
[2021-03-25 17:26] LABS: POTASSIUM 4.1 mmol/L (3.5-5.1)
[2021-03-25 17:32] LABS: ALBUMIN 4.1 g/dL (3.4-5.0); BILIRUBIN,DIRECT 0.3 mg/dL (0.0-0.2); TOTAL PROTEIN, SERUM 8.2 g/dL (6.4-8.2)
[2021-03-25] MEDS ORDERED: LORAZEPAM INJ 2 MG/ML VIAL IV ONE (19:00)
[2021-03-25] MEDS ORDERED: LORAZEPAM INJ 2 MG/ML VIAL ONE (19:05)
[2021-03-25] MEDS ORDERED: ASPI-1420 PO (19:11)
--- NOTE | 2021-03-25 19:31 | NUR ---
COVID SWAB DONE AND SENT TO LAB
--- NOTE | 2021-03-25 20:28 | NUR ---
COVID ANTIGEN IS NEGATIVE
--- NOTE | 2021-03-25 21:00 | NUR ---
COVID RESULT FAXED TO HCP INS[employer] LILIANE REQUESTED.
[2021-03-25] MEDS ORDERED: hydrALAZINE HCL IV 20 MG VIAL ONE (22:30)
[2021-03-25] MEDS ORDERED: hydrALAZINE HCL IV 20 MG VIAL IV ONE (22:30)
--- NOTE | 2021-03-25 23:06 | NUR ---
SPOKE WITH ALIZE MOMIN THAT [facility] WILL NOT BE AVAILABLE TO TAKE THE PATIENT. CM IS WORKING ON TO JANIS PT TO [facility]
--- NOTE | 2021-03-25 23:44 | NUR ---
DR COLEMAN ON THE PHONE WITH DR AVILA FROM [facility]
--- NOTE | 2021-03-25 23:46 | NUR ---
YONY FERNANDEZ SPOKE TO DR. AVILA FROM [facility] AND ACCEPTED PT PER DR. COLEMAN.
--- NOTE | 2021-03-26 03:00 | NUR ---
TRANSFER INFORMATION: PT ACCEPTED AT [facility] ACCEPTING MD AUSTIN STANLEY NUMBER FOR REPORT PT WILL GO TO ROOM 2420 NEUROTELEMETRY
[2021-03-26] MEDS ORDERED: hydrALAZINE HCL IV 20 MG VIAL ONE (04:21)
[2021-03-26] MEDS ORDERED: NITROGLYCERIN PACKET 1 GM PACKET ONE (04:22)
[2021-03-26] MEDS ORDERED: hydrALAZINE HCL IV 20 MG VIAL IV ONE (04:30)
[2021-03-26] MEDS ORDERED: NITROGLYCERIN PACKET 1 GM PACKET TD ONE (04:30)
--- NOTE | 2021-03-26 04:30 | NUR ---
dr hunter made aware of the high BP w/ a new order. noted and carried out. pt in bed resting comfortably, arouses easily. denied any pain or doscomfort. no distress, will cont to monitor
--- NOTE | 2021-03-26 06:35 | NUR ---
CALLED [facility] TWICE TO GIVE REPORT. NURSE JANI UNAVAILABLE.
--- NOTE | 2021-03-26 07:49 | NUR ---
ARE FROM [facility] 0900
[2021-03-26 07:57] VITALS: BP 161/96
--- NOTE | 2021-03-26 08:17 | NUR ---
REPORT GIVEN TO DEIDRE HURLEY AT [facility] PENDING TRANSPORT AMBULANCE. ETA 0900.
--- NOTE | 2021-03-26 09:40 | NUR ---
PATIENT TRANSFERRED TO [facility] IN STABLE CONDITION. NO DISTRESS NOTED.
== END 2021-03-26 10:19 | disposition short-term general hospital (02) ==
LOC: ER 15:37
DX: G40.909 Epilepsy, unspecified, not intractable, without status epilepticus (principal); G40.509 Epileptic seizures related to external causes, not intractable, without status epilepticus; F10.239 Alcohol dependence with withdrawal, unspecified; Z20.822 Contact with and (suspected) exposure to COVID-19; Y90.0 Blood alcohol level of less than 20 mg/100 ml; I10 Essential (primary) hypertension; M50.322 Other cervical disc degeneration at C5-C6 level; M48.02 Spinal stenosis, cervical region; H33.21 Serous retinal detachment, right eye; Z86.73 Personal history of transient ischemic attack (TIA), and cerebral infarction without residual deficits; E11.9 Type 2 diabetes mellitus without complications; Z79.82 Long term (current) use of aspirin; Z79.899 Other long term (current) drug therapy; H54.61 Unqualified visual loss, right eye, normal vision left eye; I25.10 Atherosclerotic heart disease of native coronary artery without angina pectoris; G93.40 Encephalopathy, unspecified
CPT/HCPCS: 36415; 70450; 70486; 71045; 72125; 80048; 80076; 80307; 80320; 85025; 85730; 87426; 93005; 96365; 96375; 96376; 99291; C9803; J0360 ×2; J1953; J2060; J7030; G0480

== ENCOUNTER 2021-05-13 19:32 | Emergency (ER) | payer MEDICARE ==
[~2021-05-13] VITALS: Ht 175.3 cm; Wt 83.9 kg
[~2021-05-13 19:32] MED LIST changes: -ASPI-1169 PO; +ASPI-1420 PO
--- NOTE | 2021-05-13 19:40 | NUR ---
SEIZURE PRECAUTIONS INITIATED.
--- NOTE | 2021-05-13 19:43 | NUR ---
BIBEMS C/O POSSIBLE SEIZURE, FOUND LYING ON THE SIDEWALK PER EMS REPORT.
[2021-05-13 19:53] LABS: BASOPHILS % (AUTO) 0.8 % (0.0-2.0); EOSINOPHILS % (AUTO) 1.2 % (0.0-6.0); HEMATOCRIT 41 % (39-51); HEMOGLOBIN 13.8 g/dL (13.5-17.5); LYMPHOCYTES # (AUTO) 0.9 /CMM (0.8-4.8); LYMPHOCYTES % (AUTO) 23.3 % (20.0-44.0); MEAN CORPUSCULAR HGB CONC 34 g/dl (31.0-36.0); MEAN CORPUSCULAR VOLUME 98 fL (80-96); MONOCYTES # (AUTO) 0.4 /CMM (0.1-1.30); NEUTROPHILS # (AUTO) 2.4 /CMM (1.8-8.9); NEUTROPHILS % (AUTO) 64.7 % (43.0-81.0); PLATELET COUNT (AUTO) 277 /CMM (150-450); RED BLOOD CELL COUNT(AUTO) 4.16 MIL/uL (4.5-6.0); WHITE BLOOD COUNT (AUTO) 3.7 K/uL (4.3-11.0)
[2021-05-13] MEDS ORDERED: LORAZEPAM INJ 2 MG/ML VIAL ONE (19:55)
--- NOTE | 2021-05-13 19:58 | NUR ---
PT TAKEN TO CT
[2021-05-13] MEDS ORDERED: LORAZEPAM INJ 2 MG/ML VIAL IVP ONE (20:00)
[2021-05-13 20:08] LABS: ALBUMIN 3.9 g/dL (3.4-5.0); BILIRUBIN,DIRECT 0.2 mg/dL (0.0-0.2); BILIRUBIN,TOTAL 0.6 mg/dL (0.2-1.0); CALCIUM, SERUM 8.9 mg/dL (8.5-10.1); CREATININE 0.9 mg/dL (0.6-1.3); POTASSIUM 4.1 mmol/L (3.5-5.1)
[2021-05-13] MEDS ORDERED: LORA-259 PO (21:14)
--- NOTE | 2021-05-13 21:50 | NUR ---
ATTEMTED TO WALK PT TO BATHROOM, PT UNSTEADY AND UNABLE TO WALK WIHTOUT ASSITANCE, UNABLE TO DISCHARGE, WILL CONTINUE TO MONITOR
--- NOTE | 2021-05-14 00:30 | NUR ---
dcPatient discharged to home in stable condition able to walk steadly. Written and verbal after care instructions given. Patient verbalizes understanding of instruction.
[2021-05-14 00:31] VITALS: BP 152/86
== END 2021-05-14 00:31 | disposition home or self-care (01) ==
LOC: ER 19:34
DX: F10.239 Alcohol dependence with withdrawal, unspecified (principal); R56.9 Unspecified convulsions; I10 Essential (primary) hypertension; E11.9 Type 2 diabetes mellitus without complications; Z86.73 Personal history of transient ischemic attack (TIA), and cerebral infarction without residual deficits; Z79.82 Long term (current) use of aspirin; Z79.899 Other long term (current) drug therapy; Y90.9 Presence of alcohol in blood, level not specified
CPT/HCPCS: 36415; 70450; 80048; 80076; 85025; 96374; 99284; J2060

== ENCOUNTER 2021-06-20 10:01 | Emergency (ER) | payer MEDICARE ==
[~2021-06-20] VITALS: Ht 175.3 cm; Wt 65.8 kg
[~2021-06-20 10:01] MED LIST changes: +LORA-259 PO
--- NOTE | 2021-06-20 10:15 | NUR ---
BIB R60 PT WAS WITNESSED HAVING A SEIZURE AT HOME. IV LINE @ R FOREARM 20G. URINE COLLECTED AND SENT TO LAB. PT ALERT ORIENTED X3 NON LABORED BREATHING.
[2021-06-20 10:39] LABS: BASOPHILS # (AUTO) 0.1 K/uL (0.0-0.2); BASOPHILS % (AUTO) 3.6 % (0.0-2.0); HEMATOCRIT 40 % (39-51); HEMOGLOBIN 13.5 g/dL (13.5-17.5); LYMPHOCYTES % (AUTO) 29.2 % (20.0-44.0); MEAN CORPUSCULAR HGB CONC 34 g/dl (31.0-36.0); MEAN CORPUSCULAR VOLUME 99 fL (80-96); MONOCYTES # (AUTO) 0.2 K/uL (0.1-1.30); MONOCYTES % (AUTO) 5.5 % (2.0-12.0); NEUTROPHILS # (AUTO) 2.1 K/uL (1.8-8.9); NEUTROPHILS % (AUTO) 60.7 % (43.0-81.0); PLATELET COUNT (AUTO) 258 K/uL (150-450); RED BLOOD CELL COUNT(AUTO) 4.06 MIL/uL (4.5-6.0); WHITE BLOOD COUNT (AUTO) 3.5 K/uL (4.3-11.0)
[2021-06-20 10:54] LABS: CREATININE 0.8 mg/dL (0.6-1.3); POTASSIUM 3.5 mmol/L (3.5-5.1)
[2021-06-20 10:58] LABS: ALBUMIN 3.8 g/dL (3.4-5.0); BILIRUBIN,DIRECT 0.2 mg/dL (0.0-0.2); BILIRUBIN,TOTAL 1.2 mg/dL (0.2-1.0); CALCIUM, SERUM 8.3 mg/dL (8.5-10.1); TOTAL PROTEIN, SERUM 7.8 g/dL (6.4-8.2)
[2021-06-20] MEDS: LEVETIRACETAM (500MG) 1,000 MG in IV NS 0.9% 100 ML IV SCH (10:58)
--- NOTE | 2021-06-20 11:51 | NUR ---
THE PATIENT WILL BE PICKED UP BY HIS FIREND [facility] IN 20 MIN
--- NOTE | 2021-06-20 12:25 | NUR ---
Lyubov verdugo in ED - 06/20/21 at 1225 by VERONICA Patient discharged to home in stable condition. Written and verbal after care instructions given. Patient verbalizes understanding of instruction.
--- NOTE | 2021-06-20 12:25 | NUR ---
IV LINES REMOVED. Patient discharged to home in stable condition. Written and verbal after care instructions given. Patient verbalizes understanding of instruction. D/C ON WHEELCHAIR WITH FAMILY MEMBER
[2021-06-20 12:32] VITALS: BP 140/70
== END 2021-06-20 12:38 | disposition home or self-care (01) ==
LOC: ER 10:02
DX: G40.909 Epilepsy, unspecified, not intractable, without status epilepticus (principal); I10 Essential (primary) hypertension; I25.10 Atherosclerotic heart disease of native coronary artery without angina pectoris; E11.9 Type 2 diabetes mellitus without complications; Z86.73 Personal history of transient ischemic attack (TIA), and cerebral infarction without residual deficits; Z79.82 Long term (current) use of aspirin; Z79.899 Other long term (current) drug therapy
CPT/HCPCS: 36415; 80048; 80076; 80320; 85025; 96365; 99284; J1953; J7030; G0480

== ENCOUNTER 2021-11-08 13:29 | Emergency (ER) | payer MEDICARE ==
[~2021-11-08] VITALS: Ht 180.3 cm; Wt 75.7 kg
[~2021-11-08 13:29] MED LIST changes: -LORA-259 PO
--- NOTE | 2021-11-08 13:29 | NUR ---
[facility] HOME PER EMS REPORT SEIZURE 45 MINS RESTAURANT HOST. BG 119 RESTAURANT HOST. PT IS A&OX4. BLOOD PRESSURE IS ELEVATED. BREATHING IS REGULAR AND UNLABORED. PT ATTCHED TO MONITOR AND PULSE OX. SIEZURE PRECAUTIONS WERE IMPLEMENTED. WILL CONTINUE TO MONITOR.
--- NOTE | 2021-11-08 13:56 | NUR ---
DR GA AT BEDSIDE
[2021-11-08] MEDS: LEVETIRACETAM (500MG) 1,000 MG in IV NS 0.9% 100 ML IV SCH (14:21)
--- NOTE | 2021-11-08 14:40 | NUR ---
LAB AT BEDSIDE
--- NOTE | 2021-11-08 14:51 | NUR ---
PT TAKEN TO CT
[2021-11-08 15:00] LABS: BASOPHILS % (AUTO) 0.5 % (0.0-2.0); EOSINOPHILS % (AUTO) 1.7 % (0.0-6.0); HEMATOCRIT 26 % (39-51); HEMOGLOBIN 8.2 g/dL (13.5-17.5); LYMPHOCYTES % (AUTO) 32.1 % (20.0-44.0); MEAN CORPUSCULAR HGB CONC 32 g/dl (31.0-36.0); MEAN CORPUSCULAR VOLUME 102 fL (80-96); MONOCYTES # (AUTO) 0.3 K/uL (0.1-1.30); NEUTROPHILS # (AUTO) 1.8 K/uL (1.8-8.9); NEUTROPHILS % (AUTO) 56.7 % (43.0-81.0); PLATELET COUNT (AUTO) 199 K/uL (150-450); WHITE BLOOD COUNT (AUTO) 3.2 K/uL (4.3-11.0)
--- NOTE | 2021-11-08 15:12 | NUR ---
PT BACK FROM CT
[2021-11-08] MEDS ORDERED: PANTOPRAZOLE 40 MG VIAL IV ONE (15:30)
--- NOTE | 2021-11-08 15:40 | NUR ---
PATIENT RESTING IN BED, EASY TO AROUSE, VSS.
[2021-11-08] MEDS ORDERED: PANTOPRAZOLE 40 MG VIAL ONE (15:46)
[2021-11-08] MEDS ORDERED: NORMAL SALINE FLUSH 10 ML SYR ONE (15:48)
[2021-11-08 17:07] LABS: CALCIUM, SERUM 7.9 mg/dL (8.5-10.1); CARBON DIOXIDE 23 mmol/L (21-32); CHLORIDE 108 mmol/L (98-107); CREATININE 0.8 mg/dL (0.6-1.3); GLUCOSE 93 mg/dL (74-106); POTASSIUM 3.4 mmol/L (3.5-5.1); SODIUM SERUM 142 mmol/L (136-145); UREA NITROGEN, BLOOD 14 mg/dL (7-18)
[2021-11-08 17:08] LABS: ALCOHOL, BLOOD < 3 mg/dL (0-0)
--- NOTE | 2021-11-08 18:31 | NUR ---
URINE COLLECTED AND SENT TO LAB
--- NOTE | 2021-11-08 18:45 | NUR ---
MOVE SHEET SUBMITTED.
--- NOTE | 2021-11-08 22:00 | NUR ---
SPOKE TO ADMITTING, PER GINO WALDEN, SHE IS LOOKING FOR A BED AND WILL CALL US WITH A MD TO MD WHEN SHE FINDS A BED
--- NOTE | 2021-11-08 22:49 | NUR ---
PER ADMITTING, ASSIGNED TO NEW CM. NEW CM WILL RETURN CALL WHEN SHE RETURNS TO DESK
--- NOTE | 2021-11-09 00:58 | NUR ---
CALLED [facility], SPORTS MEDICINE PHYSICIAN DR MARTINEZ
--- NOTE | 2021-11-09 03:00 | NUR ---
PT SLEEPING COMFORTABLY BREATHING EVEN AND UNLABORED ON THE MONITOR. ALL V/S STABLE.
[2021-11-09] MEDS ORDERED: hydrALAZINE HCL 10 MG TABLET PO ONE ×2 (07:30→20:00)
[2021-11-09 08:21] LABS: HEMOGLOBIN 14.6 g/dL (13.5-17.5)
[2021-11-09] MEDS: LEVETIRACETAM (500MG) 1,000 MG in IV NS 0.9% 100 ML IV SCH ×2 (08:38→20:40)
--- NOTE | 2021-11-09 09:20 | NUR ---
0920: GINO called [facility] [phone] and spoke to David. Per David as stated on their note, "they are currently working on the case for transfer to [facility] and waiting for an MD." David also stated that at this time they just started working on the case and there is no nurse case management assigned to the patient and is still communicating on the actual plan because their system was down yesterday. Per David, she will call GINO as soon as she gets an update.
--- NOTE | 2021-11-09 10:41 | NUR ---
11/09: 1034 Received a call from GINO Claudio assigned from [facility] [phone]. Informed González that patient is stable however, patient will need SNF placement for medical management of SZ d/o and is currently confused. Per González, he will communicate with MD at [facility] and will call cm back to determine if patient will still need to transfer to either [facility] or will authorize SNF placement. Informed González that [facility], a contracted facility, has a bed available and is willing to accept the patient, pending auth. Per González, he will call with an update. Provided ER dept contact to González for possible peer to peer if needed.
--- NOTE | 2021-11-09 11:29 | NUR ---
PT SLEEPING COMFORTABLY BREATHING EVEN AND UNLABORED ON THE MONITOR. ALL V/S STABLE.
--- NOTE | 2021-11-09 12:53 | NUR ---
called CM for update. per [facility], system is down and unable to get authorization for snf placement as of this time.
--- NOTE | 2021-11-09 13:58 | NUR ---
pt sleeping comfortably in bed, vss, breathing regular and unlabored.
--- NOTE | 2021-11-09 14:14 | NUR ---
Called González, re: status of placement, per González he had paged the Doctor from [facility] but there was no answer. Reiterated to González that patient is not safe to go home and will need to be transferred to either a contracted [facility] SNF for placement, [facility] or provide auth to facility if they are unable to take patient. Accentuated to González that patient has been in ED department and case was presented to [facility] since 11/08 and early this am. Per González, he will call another Doctor from another contracted hospital.
--- NOTE | 2021-11-09 14:47 | NUR ---
Received a call from GINO Claudio and stated that their Doctor stated the patient will need SNF placement with [facility]. Faxed SNF packet to [phone].
--- NOTE | 2021-11-09 15:35 | NUR ---
1535 Called González and informed González that [facility] is an [facility] contracted facility and outreach coordinator, Anyi needs an auth. Informed González that Anyi had called and left him messages. Called Anyi from [facility] and stated she had spoken to González and González stated that he needed to verify if [facility] is a contracted facility despite reassurance provided from Anyi.
--- NOTE | 2021-11-09 16:00 | NUR ---
1600 Called González, attempted numerous times but to no avail. Voice messages left.
--- NOTE | 2021-11-09 16:30 | NUR ---
1630 Called González again, no answer. Spoke to [facility] patient access representative and reviewed case. Per Cecilia (patient access representative), González is still in house and apologetic of the situation. Informed Cecilia that there is a delay in care due to a placement has been arranged and auth for SNF placement is delaying the care. Per Cecilia a new family service caseworker will be taking over the case but not until 1700. Will call [facility] at a later time.
--- NOTE | 2021-11-09 17:26 | NUR ---
1726 Called [facility] [phone] and spoke to GINO Pack and stated she will review the case and will call back.
--- NOTE | 2021-11-09 17:44 | NUR ---
PT RESTING COMFORTABLY, VSS, BREATHING REGULAR AND UNLABORED.
--- NOTE | 2021-11-09 18:07 | NUR ---
1807 Received a call from Sirena and informed Sirena that [facility] can accept patient and has a bed available 101B. Provided Michelle nunez, admission coordinator of [facility] to Sirena.
--- NOTE | 2021-11-09 19:24 | NUR ---
1923 Spoke to Addison, per Addison kauffman to send patient now. 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 For report [phone], room 101B. Endorsed accordingly.
--- NOTE | 2021-11-09 19:34 | NUR ---
TRANSFER INFO: PT ACCEPTED AT [facility], ROOM 101-B, RN FOR REPORT [phone], ETA 2100 CM JUVENTINO [phone]
[2021-11-09] MEDS ORDERED: hydrALAZINE HCL 10 MG TABLET ONE (20:17)
--- NOTE | 2021-11-09 20:52 | NUR ---
REPORT GIVEN TO PJ
[2021-11-09] MEDS ORDERED: LEVETIRACETAM (500MG) 500 MG/5 ML VIAL IV ONE ×2 (20:54→20:55)
--- NOTE | 2021-11-09 22:13 | NUR ---
CALLED GINO JAUREGUI REGARDING AMBULANCE TRANSPORT. SHE WILL CALL BACK AFTER FOLLOW UP.
--- NOTE | 2021-11-09 22:17 | NUR ---
UPDATED AMBULANCE ETA [phone]
--- NOTE | 2021-11-09 23:21 | NUR ---
PT PICKED UP BY [facility] [address]. ALL PAPERWORK AND PATIENT BELONGINGS TRANSFERRED WITH PATIENT. IV LINE DISCONTINUED.
[2021-11-10 03:14] VITALS: BP 110/89
== END 2021-11-10 03:15 ==
LOC: ER 13:31
DX: G40.909 Epilepsy, unspecified, not intractable, without status epilepticus (principal); D64.9 Anemia, unspecified; Z20.822 Contact with and (suspected) exposure to COVID-19; Z86.73 Personal history of transient ischemic attack (TIA), and cerebral infarction without residual deficits; I10 Essential (primary) hypertension; E11.9 Type 2 diabetes mellitus without complications; Z79.899 Other long term (current) drug therapy; Z79.82 Long term (current) use of aspirin; H54.61 Unqualified visual loss, right eye, normal vision left eye
CPT/HCPCS: 36415 ×2; 70450; 80048; 80307; 80320; 85025; 85027; 85730; 86850; 87081; 87426; 93005; 96365; 96366; 96375; 99291; A4216; C9113; C9803; J1953 ×3; J7030; G0480

== ENCOUNTER 2022-08-13 14:54 | Emergency (ER) | payer MEDICARE ==
[~2022-08-13] VITALS: Ht 180.3 cm; Wt 78.0 kg
--- NOTE | 2022-08-13 15:10 | NUR ---
TO ER BED 8. BIB RA 860 FROM HOME, C/O GENERALIZED WEAKNESS X 2 DAYS. PT STATED THAT HIS LAST DRINK WAS EARLIER TODAY AND ONLY HAS ONE BEER BUT ARRIVED DRINKING. ALCOHOL WAS REMOVED FROM HIS POSSESSIONS. ATTACHED TO MONITOR. A&OX3. AWAITING MD ORDERS.
--- NOTE | 2022-08-13 15:34 | NUR ---
ISELA Jiménez UPPER ARM 20G. LABS DRAWN AND COLLECTED AT BEDSIDE.
[2022-08-13] MEDS ORDERED: IV NS 0.9% 1,000 ML BAG IV ONE (16:00)
[2022-08-13 16:02] LABS: BASOPHILS % (AUTO) 0.2 % (0.0-2.0); EOSINOPHILS % (AUTO) 0.1 % (0.0-6.0); HEMATOCRIT 42 % (39-51); HEMOGLOBIN 13.7 g/dL (13.5-17.5); LYMPHOCYTES # (AUTO) 0.9 K/uL (0.8-4.8); LYMPHOCYTES % (AUTO) 7.5 % (20.0-44.0); MEAN CORPUSCULAR HGB CONC 33 g/dl (31.0-36.0); MEAN CORPUSCULAR VOLUME 93 fL (80-96); MONOCYTES # (AUTO) 0.6 K/uL (0.1-1.30); MONOCYTES % (AUTO) 4.8 % (2.0-12.0); NEUTROPHILS # (AUTO) 10.6 K/uL (1.8-8.9); NEUTROPHILS % (AUTO) 87.4 % (43.0-81.0); PLATELET COUNT (AUTO) 280 K/uL (150-450); RED BLOOD CELL COUNT(AUTO) 4.45 MIL/uL (4.5-6.0); WHITE BLOOD COUNT (AUTO) 12.1 K/uL (4.3-11.0)
--- NOTE | 2022-08-13 16:06 | NUR ---
PT TAKEN TO CT VIA AL
[2022-08-13 16:43] LABS: THYROID STIMULATING HORMONE 0.531 uIU/mL (0.358-3.74)
[2022-08-13 16:44] LABS: ALBUMIN 3.8 g/dL (3.4-5.0); BILIRUBIN,DIRECT 0.1 mg/dL (0.0-0.2); BILIRUBIN,TOTAL 0.6 mg/dL (0.2-1.0); CALCIUM, SERUM 8.9 mg/dL (8.5-10.1); POTASSIUM 4.2 mmol/L (3.5-5.1)
--- NOTE | 2022-08-13 19:30 | NUR ---
REPORT RECEIVED FROM XAVI MOROCHO. PATIENT IS 72 YO MALE CAME EARLIER WITH CC OF GENERALIZED BODY WEAKNESS. PATIENT HAS PERIPHERAL LINE ON RIGHT UA G20. PATIENT IS DISORIENTED. AAOX3. PLACED COMFORTABLY IN BED WITH SITTER. VITALS CHECKED.
--- NOTE | 2022-08-13 19:30 | NUR ---
Note undone in EDM - 08/13/22 at 2015 by JAMES REPORT RECEIVED FROM XAVI MOROCHO. PATIENT IS 72 YO MALE CAME EARLIER WITH CC OF GENERALIZED BODY WEAKNESS. WAS POSITIVE OF COVID 10 DAYS AGO. PATIENT HAS PERIPHERAL LINE ON RIGHT UA G20. PATIENT IS DISORIENTED. AAOX3. PLACED COMFORTABLY IN BED WITH SITTER. VITALS CHECKED.
[2022-08-13] MEDS ORDERED: OLANZAPINE 10 MG VIAL IM ONE ×2 (20:00→22:13)
--- NOTE | 2022-08-13 20:09 | NUR ---
COVID SWAB DONE AND SENT TO LAB
--- NOTE | 2022-08-13 22:21 | NUR ---
IM MEDICINE GIVEN ON LEFT GLUTEAL AREA. PATIENT NEEDS TIME TO BE CONVINCED TO RECEIVE MEDICINE. PT WAS REFUSING INITIALLY.
--- NOTE | 2022-08-13 23:30 | NUR ---
PATIENT IS ASLEEP. WILL CONTINUE TO MONITOR PATIENT.
--- NOTE | 2022-08-14 02:00 | NUR ---
PATIENT WOKE UP AND TRIES TO GO AROUND THE ALLEY. PATIENT IS CUSSING AND DOESN'T WANT TO BE HELD. PATIENT WAS REDIRECTED BACK TO BED.
--- NOTE | 2022-08-14 10:09 | NUR ---
SS Consult: SS Consult requested for homelessness and alcohol use. The pt. is a 72-year-old Black male patient who came in for generalized weakness at home per EMR. Upon SS consult, the pt. is Alert & Oriented x 4 and makes good eye contact. The pt. appears disheveled with Dysphoric mood & flat affect. pt.'s speech and thought process are WNL. Pt. remained calm & cooperative throughout interview. Pt. denies current SI/ HI and denies hallucinations. SW explored Patient's mental health Hx. Pt. did not answer. SW explored pt.'s living situation. Patient states he has a home but cannot provide address. SW explored pt.'s drug & ETOH use. Pt. denies any drug or alcohol use. SW explored pt.'s support system. Pt. states his friend, Rasta is his support system and asked SW to call him for discharge location. SIENA called Rasta who stated pt. was residing at [facility] [phone]. SIENA called [facility] [phone] and spoke to the typing secretary who stated the pt. was discharged on 07/31/2022 and transferred SW to their to gather DC location. Call went to [employer] and SW left call back number. Plan: SIENA will follow up with SIENA from [facility] [phone] to determine patient's current home and plan a safe discharge. SIENA notified Marylu BURNETT.
--- NOTE | 2022-08-14 15:30 | NUR ---
Lyubov carrolladan in ED - 08/14/22 at 1541 by [email or web address] PATIENT'S ROOM ASSIGNED 112-2 AND REPORT GIVEN TO RN ASSUMING LEEROY SCHROEDER AND DR. DUNCAN RESPONDED TO TEXT FOR PATIENT'S HOME MEDICATION TO BE STARTED AND NORCO CHANGED TO 10 MG/325 MG.
--- NOTE | 2022-08-14 16:22 | NUR ---
Psych placement: SIENA faxed clincials to [facility] fax: [phone] tel: [phone]
--- NOTE | 2022-08-14 17:38 | NUR ---
ZANDER [phone] OF [facility], PT CLINICALS IS FOR REVIEW
--- NOTE | 2022-08-14 18:22 | NUR ---
CALL FROM TC FROM [facility],REPORT AND CLINICALS GIVEN REQUESTED
[2022-08-14 20:00] LABS: BILIRUBIN,URINE NEGATIVE (NEGATIVE); COLOR,URINE YELLOW (YELLOW); LEUKOCYTE ESTERASE ,URINE NEGATIVE (NEGATIVE); NITRITE, URINE NEGATIVE (NEGATIVE); PH,URINE 5.5 (5.0-8.0); PROTEIN,URINE TRACE mg/dl (NEGATIVE); UGLUCOSE NEGATIVE (NEGATIVE); UROBILINOGEN,URINE 0.2 EU/dL (0.2)
[2022-08-14 20:55] LABS: BACTERIA,URINE None seen /HPF (None Seen); MUCUS,URINE Few /LPF (None Seen); RBC,URINE 0-2 /HPF (0-2); SQUAMOUS EPITHELIAL CELL,UR 0-2 /HPF (None Seen); WBC,URINE 0-2 /HPF (0-3)
--- NOTE | 2022-08-15 10:20 | NUR ---
DISCHARGE NOTE 08/15/2022: SIENA SPOKE WITH DEIDRE ([phone]) REED DIPPER WHO STATED THAT PT IS ACCEPTED AT [facility] [id number] [place] [id number] ([phone]) ZULEYKA DAHL. DEIDRE WILL SKI PATROL OFFICER PT AT 1PM.
--- NOTE | 2022-08-15 10:24 | NUR ---
[facility] [id number] [facility] [id number] [employer] Designer [phone]
--- NOTE | 2022-08-15 11:37 | NUR ---
NEW ETA 1200 PER MIKE SW
--- NOTE | 2022-08-15 14:18 | NUR ---
All belongings given back to patient.
--- NOTE | 2022-08-15 14:21 | NUR ---
Patient discharged to [facility] at [address] [facility] in stable condition. Written and verbal after care instructions given. Assisted living personnel "Megan" [phone].
[2022-08-15 14:27] VITALS: BP 124/68
== END 2022-08-15 14:27 | disposition home or self-care (01) ==
LOC: ER 14:56
DX: G93.40 Encephalopathy, unspecified (principal); Z20.822 Contact with and (suspected) exposure to COVID-19; R94.31 Abnormal electrocardiogram [ECG] [EKG]; E11.9 Type 2 diabetes mellitus without complications; I10 Essential (primary) hypertension; Z86.73 Personal history of transient ischemic attack (TIA), and cerebral infarction without residual deficits; Z91.19 Patient's noncompliance with other medical treatment and regimen; F10.10 Alcohol abuse, uncomplicated; Y90.1 Blood alcohol level of 20-39 mg/100 ml; H54.61 Unqualified visual loss, right eye, normal vision left eye
CPT/HCPCS: 99285; 96372; 96360; 93005; 70450; 82140; 85025; 80048; 80076; 81001; 36415; 84443; 85730; 82962; 87426; 80320; 80307; J7030; J3490; C9803; G0480

== ENCOUNTER 2022-08-16 18:09 | Emergency (ER) | payer MEDICARE, OTHER ==
[~2022-08-16] VITALS: Ht 180.3 cm; Wt 89.8 kg
[2022-08-16 20:47] VITALS: BP 98/65
== END 2022-08-17 03:36 | disposition home or self-care (01) ==
LOC: ER 18:13
DX: F10.129 Alcohol abuse with intoxication, unspecified (principal); I10 Essential (primary) hypertension; E11.9 Type 2 diabetes mellitus without complications; Z79.899 Other long term (current) drug therapy; Y90.9 Presence of alcohol in blood, level not specified
CPT/HCPCS: 82962-TC